=== PATIENT | male | born 1955 | race American Indian/Alaskan Native ===

== ENCOUNTER 2020-01-16 13:54 | Observation (INO) | payer SELFPAY ==
--- NOTE | 2020-01-16 14:19 | Cat Scan Report ---
CT head/brain wo con INDICATION / CLINICAL INFORMATION: 64 years Male; MAIN. TECHNIQUE: Routine CT head without contrast. All CT scans at this location are performed using CT dos e reduction for ALARA by means of automated exposure control. COMPARISON: None. FINDINGS: BRAIN / INTRACRANIAL CONTENTS: Multiple lacunar infarcts seen in the gangliocapsular and thalamic reg ions. Age of these findings are indeterminate without diffusion imaging by MRI. Otherwise, no acute hemorrhage, mass effect, midline shift, hydrocephalus, or acute, large territori al infarct. There are mild areas of decreased attenuation in the white matter of the cerebral hemispheres. These are nonspecific findings and may be related to microangiopathy (hypertension, diabetes, atheroscleros is), given the patient's age. It might be difficult to evaluate for small areas of ischemia without d iffusion imaging by MRI. CRANIOCERVICAL JUNCTION: No significant abnormality. ORBITS: No significant abnormality of visualized orbits. 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 Visualized paranasal sinuses are essentially clear. ADDITIONAL FINDINGS: No significant atherosclerotic disease appreciated. IMPRESSION: 1. No focal mass, hemorrhage, hydrocephalus, or acute, large territorial infarct. Signer Name: Taras Franklin MD, III Signed: 01/16/2020 2:14 PM Workstation Name: [facility]
--- NOTE | 2020-01-16 14:26 | Consultation ---
History of Present Illness Consult date: 01/16/20 History of present illness: [facility] Date of Service: 01/16/2020 13:57:54 Impression: G45.9 - Transient cerebral ischaemic attack, unspecified Comments/Sign-Out: likely small vessel event with right face weakness and dysarthria (resolved to baseline per patient). He reportedly has hx of TIA but is not on aspirin daily; it seems he does not get regular medical care. Known risk factors include age, prior CV dz. TPA is not indicated for NIH SS 1 for baseline chronic mild dysarthria; presentation not suggestive of LVO. Metrics: Last Known Well: 01/16/2020 09:00:00 [employer] Notification Time: 01/16/2020 13:57:32 Arrival Time: 01/16/2020 13:54:00 Stamp Time: 01/16/2020 13:57:54 Time First Login Attempt: 01/16/2020 14:03:00 Video Start Time: 01/16/2020 14:05:00 Symptoms: nausea, facial droop, dysarthria NIHSS Start Assessment Time: 01/16/2020 14:09:25 Patient is not a candidate for Alteplase/Activase. Patient was not deemed candidate for Alteplase/Activase thrombolytics because of Resolved symptoms (no residual disabling symptoms). Video End Time: 01/16/2020 14:20:22 CT head showed no acute hemorrhage or acute core infarct. Clinical Presentation is not Suggestive of Large Vessel Occlusive Disease ED Physician notified of diagnostic impression and management plan on 01/16/2020 14:21:45 Our recommendations are outlined below. Recommendations: Activate Stroke Protocol Admission/Order Set Stroke/Telemetry Floor Neuro Checks Bedside Swallow Eval DVT Prophylaxis IV Fluids, Normal Saline Head of Bed 30 Degrees Euglycemia and Avoid Hyperthermia (PRN Acetaminophen) Initiate Aspirin 81 MG Daily Routine Consultation with Inhouse Neurology for Follow up Care Sign Out: Discussed with Emergency Department Provider History of Present Illness: Patient is a 64 year old Male. Patient was brought by EMS for symptoms of nausea, facial droop, dysarthria presented to ED for sudden onset of nausea with distribution specialist note of slurred speech, generalized weakness, right facial droop prompting stroke alert. Patient initially report anything but nausea to me but acknowledges other sxs reported above by distribution specialist. He was last well/at baseline at 9:00 today. He denies vertigo, focal extremitiy weakness, aphasia, vision change, prior similar sxs. He denies confusion though he cannot report age/month. He is oriented to year, president. He states he is not on any medication. Per distribution specialist, son states he has baseline dysarthria but this is worse. He did not report any memory trouble. No family at bedside. Past Medical History: Stroke There is NO history of Hypertension There is NO history of Diabetes Mellitus There is NO history of Hyperlipidemia There is NO history of Atrial Fibrillation There is NO history of Coronary Artery Disease Anticoagulant use: No Antiplatelet use: No Examination: BP(150/70), Pulse(n/a), Blood Glucose(123) 1A: Level of Consciousness - Alert; keenly responsive + 0 1B: Ask Month and Age - Both Questions Right + 0 1C: Blink Eyes & Squeeze Hands - Performs Both Tasks + 0 2: Test Horizontal Extraocular Movements - Normal + 0 3: Test Visual Reyes - No Visual Loss + 0 4: Test Facial Palsy (Use Grimace if Obtunded) - Normal symmetry + 0 5A: Test Left Arm Motor Drift - No Drift for 10 Seconds + 0 5B: Test Right Arm Motor Drift - No Drift for 10 Seconds + 0 6A: Test Left Leg Motor Drift - No Drift for 5 Seconds + 0 6B: Test Right Leg Motor Drift - No Drift for 5 Seconds + 0 7: Test Limb Ataxia (FNF/Heel-Gutierrez) - No Ataxia + 0 8: Test Sensation - Normal; No sensory loss + 0 9: Test Language/Aphasia - Normal; No aphasia + 0 10: Test Dysarthria - Mild-Moderate Dysarthria: Slurring but can be understood + 1 (chronic baseline per patient and son report to distribution specialist) 11: Test Extinction/Inattention - No abnormality + 0 NIHSS Score: 1 Patient/Family was informed the Neurology Consult would happen via TeleHealth consult by way of interactive audio and video telecommunications and consented to receiving care in this manner. Due to the immediate potential for life-threatening deterioration due to underlying acute neurologic illness, I spent 15 minutes providing critical care. This time includes time for face to face visit via telemedicine, review of medical records, imaging studies and discussion of findings with providers, the patient and/or family. Dr Elsy Yeung [employer] Case [id number] Medications and Allergies Allergies Allergy/AdvReac Type Severity Reaction Status Date / Time No Known Allergies Allergy Unverified 01/16/20 14:16 Physical Examination - Vital Signs Vital Signs: Vital Signs Pulse Resp BP Pulse Ox 69 18 134/80 98 01/16/20 14:10 01/16/20 14:10 01/16/20 14:10 01/16/20 14:10
[2020-01-16] MEDS ORDERED: ASPIRIN 325 MG TAB PO ONE (14:38)
--- NOTE | 2020-01-16 14:53 | Emergency Department Report ---
ED Neuro Deficit HPI - General Chief Complaint: Neuro Symptoms/Deficit Stated Complaint: STROKE Time Seen by Provider: 01/16/20 13:58 Source: patient, EMS Mode of arrival: Stretcher Limitations: Altered Mental Status - History of Present Illness Initial Comments: 64-year-old male, history of TIA in the past, presents to ED with new onset neuro deficits. EMS reports that patient was working on a car at approximately 1:25 PM when he started to have slurred speech and facial droop. Son reported that patient has a baseline slurring of his speech secondary to a " TIA" in the past. Patient denies having any numbness or weakness in his extremities. EMS reports symptoms were resolved at approximately 1:54 PM. Patient denies taking any medications at this time. He states he does not have a regular doctor currently. -: This afternoon Location: speech, right face Presenting Symptoms: Present: Unable to Speak Clearly History of same: Yes Place: home Severity: mild Quality: improving Improves With: none Worsens With: none On Anticoagulants: No Associated Symptoms: denies other symptoms. denies: chest pain, fever/chills, headaches, shortness of breath Treatments Prior to Arrival: none - Related Data Home Medications: Previous Rx's Medication Instructions Recorded Last Taken Type Aspirin 325 mg PO QDAY #30 tablet 01/17/20 Unknown Rx AtorvaSTATin [Lipitor] 40 mg PO QHS #30 tablet 01/17/20 Unknown Rx amLODIPine 5 mg PO DAILY #30 tab 01/17/20 Unknown Rx Allergies/Adverse Reactions: Allergies Allergy/AdvReac Type Severity Reaction Status Date / Time No Known Allergies Allergy Unverified 01/16/20 14:16 ED Review of Systems ROS: Stated complaint: STROKE Other details as noted in HPI Comment: All other systems reviewed and negative Constitutional: denies: fever Respiratory: denies: shortness of breath Cardiovascular: denies: chest pain Gastrointestinal: nausea. denies: abdominal pain, vomiting Neurological: other (Denies dizziness). denies: headache ED Past Medical Hx - Past Medical History Previous Medical History?: Yes Hx Hypertension: Yes Additional medical history: TIA - Social History Smoking Status: Unknown if ever smoked - Medications Home Medications: Home Medications Medication Instructions Recorded Confirmed Last Taken Type Aspirin 325 mg PO QDAY #30 tablet 01/17/20 Unknown Rx AtorvaSTATin [Lipitor] 40 mg PO QHS #30 tablet 01/17/20 Unknown Rx amLODIPine 5 mg PO DAILY #30 tab 01/17/20 Unknown Rx ED Neuro Physical Exam - General Limitations: Altered Mental Status General appearance: alert, in no apparent distress Suspected Stroke: Yes - Head Head exam: Present: atraumatic, normocephalic - Eye Eye exam: Present: normal appearance, PERRL, EOMI - ENT ENT exam: Present: mucous membranes moist - Neck Neck exam: Present: normal inspection - Respiratory Respiratory exam: Present: normal lung sounds bilaterally. Absent: respiratory distress - Cardiovascular Cardiovascular Exam: Present: regular rate, normal rhythm - GI/Abdominal GI/Abdominal exam: Present: soft. Absent: distended, tenderness - Extremities Exam Extremities exam: Present: normal inspection - Neurological Exam Neurological exam: Present: alert, oriented X3 - NIHSS Assessment Interval: Baseline 1a. Level of Consciousness: alert/keenly responsive 1b. LOC Questions: answers both correctly 1c. LOC Commands: performs tasks correctly 2. Best Gaze: normal 3. Visual: no visual loss 4. Facial Palsy: normal symmetrical movement 5b. Motor Arm Right: no drift 5a. Motor Arm Left: no drift 6a. Motor Leg Left: no drift 6b. Motor Leg Right: no drift 7. Limb Ataxia: absent 8. Sensory: normal 9. Best Language: no aphasia 10. Dysarthria: mild/moderate dysarthria 11. Extinction/Inattention: no abnormality Total Score: 1 Stroke Severity: Minor Stroke - Psychiatric Psychiatric exam: Present: normal affect, normal mood - Skin Skin exam: Present: warm, dry, intact, normal color ED Course Vital Signs 01/16/20 01/16/20 01/16/20 14:10 14:16 14:20 Temperature 97.8 F Pulse Rate 69 Respiratory 18 18 15 Rate Blood Pressure 134/80 O2 Sat by Pulse 98 98 Oximetry 01/16/20 01/16/20 01/16/20 14:30 14:45 15:00 Temperature Pulse Rate 69 74 70 Respiratory 16 16 16 Rate Blood Pressure 137/71 143/77 159/98 O2 Sat by Pulse 97 95 97 Oximetry 01/16/20 01/16/20 01/16/20 15:15 15:30 15:45 Temperature Pulse Rate 69 69 72 Respiratory 12 18 17 Rate Blood Pressure 147/86 148/84 150/86 O2 Sat by Pulse 95 95 94 Oximetry 12/10/20 16:00 Temperature Pulse Rate 70 Respiratory 19 Rate Blood Pressure 154/89 O2 Sat by Pulse 95 Oximetry - Lab Data Result diagrams: 01/16/20 14:34 01/16/20 14:34 Lab Results 01/16/20 01/16/20 01/16/20 Range/Units 14:34 14:34 14:34 WBC 6.4 (4.5-11.0) K/mm3 RBC 5.19 H (3.65-5.03) M/mm3 Hgb 14.2 (11.8-15.2) gm/dl Hct 43.8 (35.5-45.6) % MCV 85 (84-94) fl MCH 28 (28-32) pg MCHC 33 (32-34) % RDW 14.6 (13.2-15.2) % Plt Count 257 (140-440) K/mm3 Lymph % (Auto) 19.0 (13.4-35.0) % Morris % (Auto) 11.1 H (0.0-7.3) % Eos % (Auto) 0.8 (0.0-4.3) % Baso % (Auto) 0.4 (0.0-1.8) % Lymph # (Auto) 1.2 (1.2-5.4) K/mm3 Morris # (Auto) 0.7 (0.0-0.8) K/mm3 Eos # (Auto) 0.1 (0.0-0.4) K/mm3 Baso # (Auto) 0.0 (0.0-0.1) K/mm3 Seg Neutrophils % 68.7 (40.0-70.0) % Seg Neutrophils # 4.4 (1.8-7.7) K/mm3 PT 13.7 (12.2-14.9) Sec. INR 1.07 (0.87-1.13) APTT 25.4 (24.2-36.6) Sec. Thrombin Time 16.0 (15.1-19.6) Sec. Sodium 140 (137-145) mmol/L Potassium 4.0 (3.6-5.0) mmol/L Chloride 105.3 (98-107) mmol/L Carbon Dioxide 23 (22-30) mmol/L Anion Gap 16 mmol/L BUN 17 (9-20) mg/dL Creatinine 1.4 H (0.8-1.3) mg/dL Estimated GFR > 60 ml/min BUN/Creatinine Ratio 12 % Glucose 104 H (75-100) mg/dL Calcium 9.6 (8.4-10.2) mg/dL Total Creatine Kinase 256 H (55-170) units/L CK-MB (CK-2) 3.1 (0.0-4.0) ng/mL CK-MB (CK-2) Rel Index 1.2 (0-4) Troponin T < 0.010 (0.00-0.029) ng/mL - EKG Data -: EKG Interpreted by Me EKG shows normal: sinus rhythm, axis, intervals, QRS complexes Rate: normal Interpretation: no acute changes, LVH - Radiology Data Radiology results: report reviewed, image reviewed - Medical Decision Making 64-year-old male, history of TIA/CVA in the past with baseline slurred speech presents to the ED with what appears to be another TIA. Patient experienced wor sening of his slurred speech and facial droop for approximately 30 minutes. Symptoms resolved prior to ED arrival. CT head is negative for any acute findings. Patient has been seen and evaluated by neurologist. Stroke work-up is recommended. Patient will be admitted to hospitalist, Dr. Owen, for further management. - Differential Diagnosis Ischemic CVA, hemorrhagic CVA, TIA, seizure Critical care attestation.: If time is entered above; I have spent that time in minutes in the direct care of this critically ill patient, excluding procedure time. ED Disposition Clinical Impression: TIA (transient ischemic attack) Disposition: -09 OP ADMIT IP TO THIS HOSP Is pt being admited?: Yes Condition: Stable Time of Disposition: 14:57
[2020-01-16 14:57] LABS: Basophils % (Auto) 0.4 % (0.0-1.8); Eosinophils # (Auto) 0.1 K/mm3 (0.0-0.4); Eosinophils % (Auto) 0.8 % (0.0-4.3); Hematocrit 43.8 % (35.5-45.6); Hemoglobin 14.2 gm/dl (11.8-15.2); Lymphocytes # (Auto) 1.2 K/mm3 (1.2-5.4); Mean Corpuscular HGB Conc 33 % (32-34); Mean Corpuscular Volume 85 fl (84-94); Monocytes # (Auto) 0.7 K/mm3 (0.0-0.8); Monocytes % (Auto) 11.1 % (0.0-7.3); Platelet Count 257 K/mm3 (140-440); Red Blood Count 5.19 M/mm3 (3.65-5.03); Red Cell Distribution Width 14.6 % (13.2-15.2)
--- NOTE | 2020-01-16 15:09 | History and Physical Report ---
History of Present Illness Chief complaint: I feel weak, and my speech isnt right History of present illness: 64 YO Male with HTN, CVA presents to ED for evaluation. Pt states that he was in his usual state of health and was outside at his home making repairs to his vehicle when he experienced a sudden onset of slurred speech, right facial drooping, drooling. Patient reports that symptoms began at 1325 hrs. EMS was notified and upon arrival the patient was found to be in distress and was transported to [facility] for further care and evaluation of the aforementioned symptoms. Patient seen and evaluated in the emergency department. All lab and imaging studies reviewed. Patient found to have clinical symptoms consistent with CVA at the time of my evaluation. Teleneurology was consulted. Patient was deemed not to be a candidate for TPA. Patient placed in observation status and admitted to medical floor and initiated on CVA protocol. Patient denies fever, chills, chest pain, palpitation, productive cough, skin rash, recent ill contacts, or known exposure to COVID-19. No prior admission for review. No m edication listed at time of admission for reconciliation. Past History Past Medical History: stroke Past Surgical History: No surgical history, Other (Reviewed) Social history: . denies: smoking, alcohol abuse, prescription drug abuse Family history: hypertension Medications and Allergies Allergies Allergy/AdvReac Type Severity Reaction Status Date / Time No Known Allergies Allergy Unverified 01/16/20 14:16 Home Medications Medication Instructions Recorded Confirmed Last Taken Type No Known Home Medications [No 01/16/20 01/16/20 Unknown History Reported Home Medications] Review of Systems Constitutional: no weight loss, no weight gain, no fever, no sweats Ears, nose, mouth and throat: no ear pain, no ear discharge, no tinnitis, no nasal congestion, no sinus pressure Cardiovascular: no chest pain, no orthopnea, no rapid/irregular heart beat, no syncope, no lightheadedness, no shortness of breath Respiratory: no cough, no excessive sputum, no shortness of breath Gastrointestinal: no nausea, no vomiting, no diarrhea Genitourinary Male: no hematuria, no flank pain, no urinary hesitancy, no incontinence Rectal: no pain, no bleeding Musculoskeletal: no neck stiffness Integumentary: no rash, no pruritis, no wounds, no boils Neurological: weakness, change in speech, motor disturbance, other (Drooling, facial droop), no head injury, no paralysis, no numbness, no seizures, no tremors Psychiatric: no anxiety, no memory loss, no sleep disturbances, no insomnia, no change in appetite, no suicidal ideation Endocrine: no cold intolerance, no excessive thirst, no polydipsia, no excessive sweating Hematologic/Lymphatic: no easy bruising, no easy bleeding, no lymphedema Allergic/Immunologic: no urticaria, no wheezing, no anaphylaxis Exam - Constitutional Vitals: Temp Pulse Resp BP Pulse Ox 97.8 F 69 16 137/71 97 01/16/20 14:20 01/16/20 14:30 01/16/20 14:30 01/16/20 14:30 01/16/20 14:30 General appearance: Present: mild distress - EENT Eyes: Present: PERRL ENT: hearing intact, clear oral mucosa - Neck Neck: Present: supple, normal ROM - Respiratory Respiratory effort: normal Respiratory: bilateral: CTA - Cardiovascular Heart Sounds: Present: S1 & S2. Absent: rub, click - Extremities Extremities: pulses symmetrical, No edema Peripheral Pulses: within normal limits - Abdominal General gastrointestinal: Present: soft, non-tender, non-distended, normal bowel sounds Male genitourinary: Present: normal - Integumentary Integumentary: Present: clear, warm, dry - Musculoskeletal Musculoskeletal: gait normal, strength equal bilaterally - Psychiatric Psychiatric: appropriate mood/affect, intact judgment & insight - Neurologic Neurologic: CNII-XII intact, focal deficits (Finally get you out of the jeep), moves all extremities Results - Labs CBC & Chem 7: 01/16/20 14:34 01/16/20 14:34 Labs: Abnormal lab results 01/16/20 Range/Units 14:34 RBC 5.19 H (3.65-5.03) M/mm3 [place] % (Auto) 11.1 H (0.0-7.3) % Assessment and Plan - Patient Problems (1) CVA (cerebral vascular accident) Current Visit: Yes Status: Acute Plan to address problem: CT head, Neuro check, Physical therapy consulted, Occupational therapy, Speech therapy consulted, seizure precautions, anitplatelet therapy, lipid panel, statin therapy. (2) Dysarthria Current Visit: Yes Status: Acute Plan to address problem: Speech therapy consulted, (3) DVT prophylaxis Current Visit: Yes Status: Acute Plan to address problem: SCD to BLE while in bed,
[2020-01-16] MEDS ORDERED: PROMETHAZINE 25 MG RECT SUPP PR PRN (15:10)
[2020-01-16] MEDS ORDERED: ONDANSETRON 4 MG/2 ML INJ IV PRN (15:10)
[2020-01-16] MEDS ORDERED: METOCLOPRAMIDE 10 MG TAB PO PRN (15:10)
[2020-01-16] MEDS ORDERED: ACETAMINOPHEN 325 MG TAB PO PRN (15:10)
[2020-01-16] MEDS ORDERED: MAGNESIUM HYDROXIDE (MOM) ORAL LIQD UDC PO PRN (15:10)
[2020-01-16 15:11] LABS: INR 1.07 (0.87-1.13)
[2020-01-16 15:12] LABS: Partial Thromboplastin Time 25.4 Sec. (24.2-36.6)
[2020-01-16 15:14] LABS: Creatine Kinase MB 3.1 ng/mL (0.0-4.0)
[2020-01-16 15:15] LABS: BUN/Creatinine Ratio 12; Blood Urea Nitrogen 17 mg/dL (9-20); Calcium 9.6 mg/dL (8.4-10.2); Hemolysis Index 16
[2020-01-17] MEDS ORDERED: ASPIRIN 325 MG TAB PO SCH (10:00)
--- NOTE | 2020-01-17 12:00 | Discharge Summary ---
Providers - Providers Date of Admission: 01/16/20 15:10 Attending physician: CRISTHIAN MARIE 01/16/20 15:10 Occupational Therapy Evaluate and Treat [CONS] Routine Comment: Reason For Exam: Neuro deficits Physical Therapy Evaluation and Treat [CONS] Routine Comment: Reason For Exam: Neuro deficits 01/16/20 15:11 Speech Therapy Evaluation and Treat [CONS] Routine Reason For Exam: swallow eval Primary care physician: [employer] Hospitalization Condition: Stable - Discharge Diagnoses (1) CVA (cerebral vascular accident) Status: Acute (2) Dysarthria Status: Acute (3) DVT prophylaxis Status: Acute Exam - Constitutional Vitals: Temp Pulse Resp BP Pulse Ox 98.5 F 62 18 162/71 98 01/17/20 08:45 01/17/20 10:40 01/17/20 10:40 01/17/20 10:40 01/17/20 10:40 Plan Follow up with: PRIMARY CARE, [Primary Care Provider] - 7 Days Prescriptions: Aspirin 325 mg PO QDAY #30 tablet AtorvaSTATin [Lipitor] 40 mg PO QHS #30 tablet
[2020-01-17 12:39] VITALS: BP 146/79
== END 2020-01-17 16:38 | disposition home or self-care (01) ==
LOC: ED 13:54 → 4A 15:10
PROVIDERS: ADMIT Internal Medicine; ATTEND Internal Medicine
DX: I63.9 Cerebral infarction, unspecified (principal); G45.9 Transient cerebral ischemic attack, unspecified; I10 Essential (primary) hypertension; R47.1 Dysarthria and anarthria; F17.210 Nicotine dependence, cigarettes, uncomplicated; R29.701 NIHSS score 1; Z79.82 Long term (current) use of aspirin; Z79.899 Other long term (current) drug therapy
CPT/HCPCS: 36415; 70450; 80048; 82550; 82553; 84484; 85025; 85610; 85670; 85730; 92523; 92610; 93005; 93306; 97165; 99285; 99406; A9270; G0378

== ENCOUNTER 2021-06-02 08:32 | Inpatient (IN) | payer SELFPAY ==
[2021-06-02] MEDS ORDERED: ATROPINE 0.1% (1 MG/10 ML) CARDIAC SYRINGE IV ONE (10:27)
[2021-06-02] MEDS ORDERED: ONDANSETRON 4 MG/2 ML INJ IV ONE (10:38)
[2021-06-02] MEDS ORDERED: fentaNYL 100 MCG/2 ML INJ IV ONE (10:38)
--- NOTE | 2021-06-02 10:43 | Emergency Department Report ---
HPI - General Chief Complaint: Arrhythmia/Palpitations Time Seen by Provider: 06/02/21 10:26 - [facility] HPI: Room 25 Patient is a 66-year-old male present with a chief complaint of bilateral foot pain. Patient states he has had bilateral foot pain x4 months. Patient states he went to [facility] but was not given a diagnosis. Patient denies any preceding trauma. Patient states he continues to have pain whenever he bears weight. Patient denies history of fever, chest pain, shortness of breath or dizziness. Patient was found to be bradycardic in triage with a heart rate of 39 bpm. The patient states he has not currently taking any medications. Patient denies having a past medical history including hypertension ED Past Medical Hx - Past Medical History Hx Hypertension: Yes Additional medical history: TIA - Surgical History Past Surgical History?: No - Family History Family history: no significant - Social History Smoking Status: Former Smoker (None x2-years) Substance Use Type: None (Denies illicit drug use) - Medications Home Medications: Home Medications Medication Instructions Recorded Confirmed Last Taken Type Aspirin 325 mg PO QDAY #30 tablet 01/17/20 Unknown Rx AtorvaSTATin [Lipitor] 40 mg PO QHS #30 tablet 01/17/20 Unknown Rx amLODIPine 5 mg PO DAILY #30 tab 01/17/20 Unknown Rx ED Review of Systems ROS: Stated complaint: FEET SWOLLEN Other details as noted in HPI Constitutional: no symptoms reported. denies: fever Eyes: denies: eye pain ENT: denies: throat pain Respiratory: denies: shortness of breath Cardiovascular: denies: chest pain, palpitations Endocrine: no symptoms reported Gastrointestinal: denies: abdominal pain Genitourinary: denies: dysuria Musculoskeletal: arthralgia, myalgia Neurological: denies: headache Physical Exam - Physical Exam Vital Signs: Vital Signs 06/02/21 09:44 Temperature 98.2 F Pulse Rate 42 L Respiratory 16 Rate Blood Pressure 133/82 [Left] O2 Sat by Pulse 98 Oximetry Physical Exam: GENERAL: The patient is well-developed well-nourished male lying on stretcher not appearing to be in acute distress. [] HEENT: Normocephalic. Atraumatic. Extraocular motions are intact. Patient has moist mucous membranes. NECK: Supple. Trachea midline CHEST/LUNGS: Clear to auscultation. There is no respiratory distress noted. HEART/CARDIOVASCULAR: Regular. There is bradycardia. There is no gallop rub or murmur. 1+ DPs bilaterally ABDOMEN: Abdomen is soft, nontender. Patient has normal bowel sounds. There is no abdominal distention. SKIN: There is no rash. There is no edema. The left fourth toe is black. No drainage appreciated. Unable to appreciate surrounding erythema NEURO: The patient is awake, alert, and oriented. The patient is cooperative. The patient has no focal neurologic deficits. The patient has normal speech. GCS 15 MUSCULOSKELETAL: There is no evidence of acute injury. ED Course Vital Signs 06/02/21 09:44 Temperature 98.2 F Pulse Rate 42 L Respiratory 16 Rate Blood Pressure 133/82 [Left] O2 Sat by Pulse 98 Oximetry ED Medical Decision Making - Lab Data Result diagrams: 06/02/21 11:08 06/02/21 11:08 Laboratory Tests 06/02/21 06/02/21 06/02/21 11:08 11:08 11:08 WBC 4.1 L RBC 4.87 Hgb 13.1 Hct 41.1 MCV 85 MCH 27 L MCHC 32 RDW 15.2 Plt Count 217 Lymph % (Auto) 28.9 [place] % (Auto) 8.4 H Eos % (Auto) 0.8 Baso % (Auto) 1.0 Lymph # (Auto) 1.2 [place] # (Auto) 0.3 Eos # (Auto) 0.0 Baso # (Auto) 0.0 Add Manual Diff Complete Seg Neutrophils % 60.9 Seg Neutrophils # 2.5 PT 14.5 INR 1.02 APTT 29.2 Sodium 137 Potassium 4.3 Chloride 97.9 L Carbon Dioxide 25 Anion Gap 18 BUN 18 Creatinine 1.1 Estimated GFR > 60 BUN/Creatinine Ratio 16 Glucose 77 Calcium 9.9 Magnesium 2.00 Total Creatine Kinase 84 CK-MB (CK-2) 2.4 CK-MB (CK-2) Rel Index 2.8 Troponin T 0.012 C-Reactive Protein < 0.30 TSH Free T4 06/02/21 11:08 WBC RBC Hgb Hct MCV MCH MCHC RDW Plt Count Lymph % (Auto) [place] % (Auto) Eos % (Auto) Baso % (Auto) Lymph # (Auto) [place] # (Auto) Eos # (Auto) Baso # (Auto) Add Manual Diff Seg Neutrophils % Seg Neutrophils # PT INR APTT Sodium Potassium Chloride Carbon Dioxide Anion Gap BUN Creatinine Estimated GFR BUN/Creatinine Ratio Glucose Calcium Magnesium Total Creatine Kinase CK-MB (CK-2) CK-MB (CK-2) Rel Index Troponin T C-Reactive Protein TSH 0.804 Free T4 1.06 Laboratory Tests 06/02/21 06/02/21 06/02/21 11:08 11:08 11:08 WBC 4.1 L RBC 4.87 Hgb 13.1 Hct 41.1 MCV 85 MCH 27 L MCHC 32 RDW 15.2 Plt Count 217 Lymph % (Auto) 28.9 [place] % (Auto) 8.4 H Eos % (Auto) 0.8 Baso % (Auto) 1.0 Lymph # (Auto) 1.2 [place] # (Auto) 0.3 Eos # (Auto) 0.0 Baso # (Auto) 0.0 Add Manual Diff Complete Seg Neutrophils % 60.9 Seg Neutrophils # 2.5 ESR 6 PT 14.5 INR 1.02 APTT 29.2 Sodium 137 Potassium 4.3 Chloride 97.9 L Carbon Dioxide 25 Anion Gap 18 BUN 18 Creatinine 1.1 Estimated GFR > 60 BUN/Creatinine Ratio 16 Glucose 77 Calcium 9.9 Magnesium 2.00 Total Creatine Kinase 84 CK-MB (CK-2) 2.4 CK-MB (CK-2) Rel Index 2.8 Troponin T 0.012 C-Reactive Protein < 0.30 TSH Free T4 Digoxin 06/02/21 06/02/21 11:08 11:08 WBC RBC Hgb Hct MCV MCH MCHC RDW Plt Count Lymph % (Auto) [place] % (Auto) Eos % (Auto) Baso % (Auto) Lymph # (Auto) [place] # (Auto) Eos # (Auto) Baso # (Auto) Add Manual Diff Seg Neutrophils % Seg Neutrophils # ESR PT INR APTT Sodium Potassium Chloride Carbon Dioxide Anion Gap BUN Creatinine Estimated GFR BUN/Creatinine Ratio Glucose Calcium Magnesium Total Creatine Kinase CK-MB (CK-2) CK-MB (CK-2) Rel Index Troponin T C-Reactive Protein TSH 0.804 Free T4 1.06 Digoxin 0.3 L - EKG Data -: EKG Interpreted by Ca EKG shows normal: sinus rhythm Rate: bradycardia (39 bpm) - EKG Data When compared to previous EKG there are: previous EKG unavailable Interpretation: nonspecific ST-T wave anselmo - Radiology Data Radiology results: report reviewed (Chest x-ray, bilateral foot x-ray), image reviewed (Chest x-ray, bilateral foot x-ray) interpreted by me: Chest x-ray-no definite focal infiltrates, no pneumothorax Bilateral foot x-ray-no acute fractures, no foreign body seen [address] [address] XRay Report Signed Patient: ELAYNE GARNER I MR#: [id number] 5 : 1955 Acct:[id number] Age/Sex: 66 / M ADM Date: 06/02/21 Loc: ED Attending Dr: Ordering Physician: JOSE MIGUEL PABLO MD Date of Service: 06/02/21 Procedure(s): XR chest 1V ap Accession Number(s): [id number] cc: JOSE MIGUEL PABLO MD Fluoro Time In Minutes: CHEST 1 VIEW INDICATION: Bradycardia. COMPARISON: None FINDINGS: Support devices: None. Heart: Within normal limits. Lungs/Pleura: No acute air space or interstitial disease. No pleural abnormality or pneumothorax. Additional findings: None. IMPRESSION: No acute findings. Signer Name: Garret Rodas Jr, MD Signed: 06/02/2021 11:08 AM Workstation Name: [id number] Transcribed By: TTR Dictated By: GARRET RODAS JR, MD Electronically Authenticated By: GARRET RODAS JR, MD Signed Date/Time: 06/02/21 110 DD/ 1108 TD/TT: [address] [address] XRay Report Signed Patient: ELAYNE GARNER I MR#: [id number] 5 : 1955 Acct:[id number] Age/Sex: 66 / M ADM Date: 06/02/21 Loc: ED Attending Dr: Ordering Physician: JOSE MIGUEL PABLO MD Date of Service: 06/02/21 Procedure(s): XR foot BILAT 3+V Accession Number(s): [id number] cc: JOSE MIGUEL PABLO MD Fluoro Time In Minutes: Bilateral feet-3 views each INDICATION: Bilateral foot pain. COMPARISON: None available. IMPRESSION: Old bimalleolar surgical fixation in the right ankle with no complication. Normal alignment. Very mild degenerative changes throughout both feet. No acute osseous abnormality. Normal alignment. Soft tissues are unremarkable. Signer Name: Jose Raul Bertrand MD Signed: 06/02/2021 11:53 AM Workstation Name: [id number] Transcribed By: CLARK Dictated By: Jose Raul Bertrand MD Electronically Authenticated By: Jose Raul Bertrand MD Signed Date/Time: 06/02/21 1153 DD/ 1151 TD/TT: - Differential Diagnosis Bradycardia, PVD, gangrene Critical care attestation.: If time is entered above; I have spent that time in minutes in the direct care of this critically ill patient, excluding procedure time. ED Disposition Clinical Impression: Bradycardia, Toe infection Disposition: ADMITTED INPATIENT Is pt being admited?: Yes Does the pt Need Aspirin: Yes Condition: Fair Referrals: PRIMARY CARE, [Primary Care Provider] - 3-5 Days Time of Disposition: 12:40 (Care transferred to hospitalist (Dr. Acosta))
--- NOTE | 2021-06-02 11:15 | XRay Report ---
CHEST 1 VIEW INDICATION: Bradycardia. COMPARISON: None FINDINGS: Support devices: None. Heart: Within normal limits. Lungs/Pleura: No acute air space or interstitial disease. No pleural abnormality or pneumothorax. Additional findings: None. IMPRESSION: No acute findings. Signer Name: Garret Rodas Jr, MD Signed: 06/02/2021 11:08 AM Workstation Name: [id number]
--- NOTE | 2021-06-02 11:58 | XRay Report ---
Bilateral feet-3 views each INDICATION: Bilateral foot pain. COMPARISON: None available. IMPRESSION: Old bimalleolar surgical fixation in the right ankle with no complication. Normal alignm ent. Very mild degenerative changes throughout both feet. No acute osseous abnormality. Normal align ment. Soft tissues are unremarkable. Signer Name: Jose Raul Bertrand MD Signed: 06/02/2021 11:53 AM Workstation Name: [id number]
[2021-06-02 12:05] LABS: Creatine Kinase MB 2.4 ng/mL (0.0-4.0)
[2021-06-02 12:06] LABS: BUN/Creatinine Ratio 16; Blood Urea Nitrogen 18 mg/dL (9-20); Calcium 9.9 mg/dL (8.4-10.2); Hemolysis Index 23
[2021-06-02 12:18] LABS: Free T4 (Free Thyroxine) 1.06 ng/dL (0.76-1.46)
[2021-06-02 12:21] LABS: INR 1.02 (0.87-1.13)
[2021-06-02 12:22] LABS: Partial Thromboplastin Time 29.2 Sec. (24.2-36.6)
[2021-06-02 12:24] LABS: C-Reactive Protein < 0.30 mg/dL (0.00-1.30)
[2021-06-02 12:30] LABS: Eosinophils % (Auto) 0.8 % (0.0-4.3); Hematocrit 41.1 % (35.5-45.6); Hemoglobin 13.1 gm/dl (11.8-15.2); Lymphocytes # (Auto) 1.2 K/mm3 (1.2-5.4); Lymphocytes % (Auto) 28.9 % (13.4-35.0); Mean Corpuscular HGB Conc 32 % (32-34); Mean Corpuscular Volume 85 fl (84-94); Monocytes # (Auto) 0.3 K/mm3 (0.0-0.8); Monocytes % (Auto) 8.4 % (0.0-7.3); Platelet Count 217 K/mm3 (140-440); Red Blood Count 4.87 M/mm3 (3.65-5.03); Red Cell Distribution Width 15.2 % (13.2-15.2)
[2021-06-02] MEDS ORDERED: cloNIDine 0.2 MG TAB PO ONE (12:35)
[2021-06-02] MEDS ORDERED: ASPIRIN 325 MG TAB PO ONE (12:40)
[2021-06-02] MEDS ORDERED: VANCOMYCIN/NS 1 GM/250 ML 1 GM/250 ML BAG IV ONE (12:40)
[2021-06-02 12:56] LABS: Erythrocyte Sedimentation Rate 6 mm/Hr (0-20)
--- NOTE | 2021-06-02 18:13 | Electrocardiograph Report ---
[facility] Test Date: 2021-06-02 Test Time: 10:06:07 Pat Name: ELAYNE GARNER Department: Room: Gender: M Can Carrier: DAHIANA : 1955 Requested By: ED DOC Order Number: [id number] Reading MD: Cailin Stephens Measurements Intervals [place] Rate: 39 P: 76 AR: 144 QRS: 69 QRSD: 92 T: 72 QT: 515 QTc: 417 Interpretive Statements Marked sinus bradycardia LVH with secondary repolarization abnormality No previous ECG available for comparison Electronically Signed On 06-02-2021 18:13:09 EDT by Cailin Stephens
[2021-06-02] MEDS ORDERED: ACETAMINOPHEN 325 MG TAB PO PRN (19:29)
[2021-06-02] MEDS ORDERED: MORPHINE 2 MG/1 ML INJ IV PRN (19:29)
[2021-06-02] MEDS ORDERED: ONDANSETRON 4 MG/2 ML INJ IV PRN (19:29)
--- NOTE | 2021-06-02 19:41 | History and Physical Report ---
History of Present Illness Date of examination: 06/02/21 Date of admission: June 02, 2021 Chief complaint: Bilateral foot pain for 4 months History of present illness: Patient comes in for bilateral foot pain. In triage patient was found to be bradycardic and EKG was done EKG was showing a heart rate of 40/min. No symptoms of lightheadedness or syncope etc. Patient being admitted for management of bilateral lower extremity pain and severe bradycardia. No chest pain. Patient does not know that he has bradycardia patient denies history of hypertension and TIA in the past. - Past Medical History --Hypertension: Yes --Additional medical history: TIA - Surgical History Past Surgical History?: No - Family History Family history: no significant - Social History Smoking Status: Former Smoker (None x2-years) Substance Use Type: None (Denies illicit drug use) - Medications Home Medications: Home Medications Medication Instructions Recorded Confirmed Last Taken Type Aspirin 325 mg PO QDAY #30 tablet 01/17/20 Unknown Rx AtorvaSTATin [Lipitor] 40 mg PO QHS #30 tablet 01/17/20 Unknown Rx amLODIPine 5 mg PO DAILY #30 tab 01/17/20 Unknown Rx Review of Systems ROS: Stated complaint: FEET SWOLLEN Other details as noted in HPI Constitutional: no symptoms reported. denies: fever Eyes: denies: eye pain ENT: denies: throat pain Respiratory: denies: shortness of breath Cardiovascular: denies: chest pain, palpitations Endocrine: no symptoms reported Gastrointestinal: denies: abdominal pain Genitourinary: denies: dysuria Musculoskeletal: arthralgia, myalgia Neurological: denies: headache Medications and Allergies Allergies Allergy/AdvReac Type Severity Reaction Status Date / Time No Known Allergies Allergy Unverified 01/16/20 14:16 Home Medications Medication Instructions Recorded Confirmed Last Taken Type No Known Home Medications [No 06/03/21 06/03/21 Unknown History Reported Home Medications] Exam - Constitutional Vitals: Temp Pulse Resp BP Pulse Ox 98.2 F 51 L 16 119/70 100 06/02/21 09:44 06/02/21 17:50 06/02/21 17:50 06/02/21 17:50 06/02/21 17:50 General appearance: Present: no acute distress, well-nourished - EENT Eyes: Present: PERRL ENT: hearing intact, clear oral mucosa - Neck Neck: Present: supple, normal ROM - Respiratory Respiratory effort: normal Respiratory: bilateral: CTA - Cardiovascular Heart rate: 40 Rhythm: regular Heart Sounds: Present: S1 & S2. Absent: rub, click - Extremities Extremities: no ischemia, pulses intact, pulses symmetrical, No edema Peripheral Pulses: within normal limits - Abdominal General gastrointestinal: Present: soft, non-tender, non-distended, normal bowel sounds Male genitourinary: Present: normal - Integumentary Integumentary: Present: clear, warm, dry - Musculoskeletal Musculoskeletal: gait normal, strength equal bilaterally - Psychiatric Psychiatric: appropriate mood/affect, intact judgment & insight - Neurologic Neurologic: CNII-XII intact, moves all extremities - Allied Health Allied health notes reviewed: nursing, case management HEART Score - HEART Score Age: 45-65 Risk factors: 1-2 risk factors Troponin: Troponin T 0.012 ng/mL (0.00-0.029) 06/02/21 11:08 Troponin: < normal limit - Critical Actions Critical Actions: 0-3 pts:0.9-1.7%risk of adverse cardiac event.Candidate for discharge Results - Labs CBC & Chem 7: 06/02/21 11:08 06/02/21 11:08 Labs: Laboratory Last Values WBC 4.1 K/mm3 (4.5-11.0) L 06/02/21 11:08 RBC 4.87 M/mm3 (3.65-5.03) 06/02/21 11:08 Hgb 13.1 gm/dl (11.8-15.2) 06/02/21 11:08 Hct 41.1 % (35.5-45.6) 06/02/21 11:08 MCV 85 fl (84-94) 06/02/21 11:08 MCH 27 pg (28-32) L 06/02/21 11:08 MCHC 32 % (32-34) 06/02/21 11:08 RDW 15.2 % (13.2-15.2) 06/02/21 11:08 Plt Count 217 K/mm3 (140-440) 06/02/21 11:08 Lymph % (Auto) 28.9 % (13.4-35.0) 06/02/21 11:08 [place] % (Auto) 8.4 % (0.0-7.3) H 06/02/21 11:08 Eos % (Auto) 0.8 % (0.0-4.3) 06/02/21 11:08 Baso % (Auto) 1.0 % (0.0-1.8) 06/02/21 11:08 Lymph # (Auto) 1.2 K/mm3 (1.2-5.4) 06/02/21 11:08 [place] # (Auto) 0.3 K/mm3 (0.0-0.8) 06/02/21 11:08 Eos # (Auto) 0.0 K/mm3 (0.0-0.4) 06/02/21 11:08 Baso # (Auto) 0.0 K/mm3 (0.0-0.1) 06/02/21 11:08 Add Manual Diff Complete 06/02/21 11:08 Seg Neutrophils % 60.9 % (40.0-70.0) 06/02/21 11:08 Seg Neutrophils # 2.5 K/mm3 (1.8-7.7) 06/02/21 11:08 ESR 6 mm/Hr (0-20) 06/02/21 11:08 PT 14.5 Sec. (12.2-14.9) 06/02/21 11:08 INR 1.02 (0.87-1.13) 06/02/21 11:08 APTT 29.2 Sec. (24.2-36.6) 06/02/21 11:08 Sodium 137 mmol/L (137-145) 06/02/21 11:08 Potassium 4.3 mmol/L (3.6-5.0) 06/02/21 11:08 Chloride 97.9 mmol/L (98-107) L 06/02/21 11:08 Carbon Dioxide 25 mmol/L (22-30) 06/02/21 11:08 Anion Gap 18 mmol/L 06/02/21 11:08 BUN 18 mg/dL (9-20) 06/02/21 11:08 Creatinine 1.1 mg/dL (0.8-1.3) 06/02/21 11:08 Estimated GFR > 60 ml/min 06/02/21 11:08 BUN/Creatinine Ratio 16 % 06/02/21 11:08 Glucose 77 mg/dL (75-100) 06/02/21 11:08 Calcium 9.9 mg/dL (8.4-10.2) 06/02/21 11:08 Magnesium 2.00 mg/dL (1.7-2.3) 06/02/21 11:08 Total Creatine Kinase 84 units/L (55-170) 06/02/21 11:08 CK-MB (CK-2) 2.4 ng/mL (0.0-4.0) 06/02/21 11:08 CK-MB (CK-2) Rel Index 2.8 (0-4) 06/02/21 11:08 Troponin T 0.012 ng/mL (0.00-0.029) 06/02/21 11:08 C-Reactive Protein < 0.30 mg/dL (0.00-1.30) 06/02/21 11:08 TSH 0.804 mlU/mL (0.270-4.200) 06/02/21 11:08 Free T4 1.06 ng/dL (0.76-1.46) 06/02/21 11:08 Digoxin 0.3 ng/mL (0.9-2.0) L 06/02/21 11:08 Short CBC 06/02/21 Range/Units 11:08 WBC 4.1 L (4.5-11.0) K/mm3 Hgb 13.1 (11.8-15.2) gm/dl Hct 41.1 (35.5-45.6) % Plt Count 217 (140-440) K/mm3 BMP 06/02/21 11:08 Sodium 137 Potassium 4.3 Chloride 97.9 L Carbon Dioxide 25 BUN 18 Creatinine 1.1 Glucose 77 Calcium 9.9 Cardiac Enzymes 06/02/21 Range/Units 11:08 Total Creatine Kinase 84 (55-170) units/L CK-MB (CK-2) 2.4 (0.0-4.0) ng/mL Troponin T 0.012 (0.00-0.029) ng/mL Assessment and Plan Advance Directives: Yes (Full code) VTE prophylaxis?: Chemical Plan of care discussed with patient/family: Yes - Patient Problems (1) Bradycardia Current Visit: Yes Status: Acute Plan to address problem: Admitted for evaluation of bradycardia Atropine as necessary Temporary pacemaker if necessary Cardiology consult requested Possible sick sinus syndrome (2) Peripheral neuropathy Current Visit: Yes Status: Chronic Qualifiers: Peripheral neuropathy type: polyneuropathy, unspecified Qualified Code(s): G62.9 - Polyneuropathy, unspecified Plan to address problem: Initiated on Lyrica 50 mg twice a day (3) DVT prophylaxis Current Visit: No Status: Acute Plan to address problem: On anticoagulation and GI prophylaxis (4) Advance care planning Current Visit: Yes Status: Acute Plan to address problem: Disease education collected, care plan discussed, diagnosis discussed, prognosis discussed. Patient is full code. Patient acknowledges understanding and agreement with care plan. +30 minutes.
[2021-06-03] MEDS: HEPARIN 5,000 UNIT/1 ML VIAL SUB-Q SCH ×3 (00:33→22:08)
[2021-06-03] MEDS: SODIUM CHLORIDE 0.9% 1000 ML 1,000 ML IV SCH ×2 (03:38→19:19)
[2021-06-03 06:03] LABS: Alanine Aminotransferase 9 units/L (7-56); Albumin 3.9 g/dL (3.9-5); BUN/Creatinine Ratio 18; Blood Urea Nitrogen 22 mg/dL (9-20); Calcium 9.1 mg/dL (8.4-10.2); Hemolysis Index 15
--- NOTE | 2021-06-03 10:33 | Progress Note ---
Assessment and Plan - Patient Problems (1) Bradycardia Current Visit: Yes Status: Acute Plan to address problem: Cardiology team consulted, supportive care. Further care and evaluation as per cardiology team. (2) DVT prophylaxis Current Visit: Yes Status: Acute Plan to address problem: SCD to bilateral lower extremities while in bed (3) Advance care planning Current Visit: Yes Status: Acute Plan to address problem: Disease education conducted, care plan discussed, diagnoses discussed, prognosis discussed, patient is full code. Patient knowledges understanding and agreement care plan, +30 minutes. History Interval history: 66 YO Male with Symptomatic Bradycardia, Malnutrition. Patient resting comfortably in bed patient denies pain. Patient denies loss of consciousness or chest pain. No reported nursing events. Hospitalist Physical - Constitutional Vitals: Temp Pulse Resp BP Pulse Ox 98.7 F 52 L 18 139/106 100 06/03/21 08:24 06/03/21 04:17 06/03/21 08:24 06/03/21 08:24 06/03/21 04:17 General appearance: Present: no acute distress, well-nourished - EENT Eyes: Present: PERRL ENT: hearing intact - Neck Neck: Present: supple - Respiratory Respiratory effort: normal Respiratory: negative: CTA - Cardiovascular Rhythm: other (Sinus bradycardia) - Extremities Extremities: no ischemia Peripheral Pulses: within normal limits - Abdominal General gastrointestinal: soft, non-tender, non-distended - Integumentary Integumentary: Present: clear, dry - Psychiatric Psychiatric: cooperative - Neurologic Neurologic: CNII-XII intact HEART Score - HEART Score Age: 45-65 Risk factors: 1-2 risk factors Troponin: Troponin T 0.012 ng/mL (0.00-0.029) 06/02/21 11:08 Troponin: < normal limit - Critical Actions Critical Actions: 0-3 pts:0.9-1.7%risk of adverse cardiac event.Candidate for discharge Results - Labs CBC & Chem 7: 06/02/21 11:08 06/03/21 04:48 Labs: Laboratory Last Values WBC 4.1 K/mm3 (4.5-11.0) L 06/02/21 11:08 RBC 4.87 M/mm3 (3.65-5.03) 06/02/21 11:08 Hgb 13.1 gm/dl (11.8-15.2) 06/02/21 11:08 Hct 41.1 % (35.5-45.6) 06/02/21 11:08 MCV 85 fl (84-94) 06/02/21 11:08 MCH 27 pg (28-32) L 06/02/21 11:08 MCHC 32 % (32-34) 06/02/21 11:08 RDW 15.2 % (13.2-15.2) 06/02/21 11:08 Plt Count 217 K/mm3 (140-440) 06/02/21 11:08 Lymph % (Auto) 28.9 % (13.4-35.0) 06/02/21 11:08 [place] % (Auto) 8.4 % (0.0-7.3) H 06/02/21 11:08 Eos % (Auto) 0.8 % (0.0-4.3) 06/02/21 11:08 Baso % (Auto) 1.0 % (0.0-1.8) 06/02/21 11:08 Lymph # (Auto) 1.2 K/mm3 (1.2-5.4) 06/02/21 11:08 [place] # (Auto) 0.3 K/mm3 (0.0-0.8) 06/02/21 11:08 Eos # (Auto) 0.0 K/mm3 (0.0-0.4) 06/02/21 11:08 Baso # (Auto) 0.0 K/mm3 (0.0-0.1) 06/02/21 11:08 Add Manual Diff Complete 06/02/21 11:08 Seg Neutrophils % 60.9 % (40.0-70.0) 06/02/21 11:08 Seg Neutrophils # 2.5 K/mm3 (1.8-7.7) 06/02/21 11:08 ESR 6 mm/Hr (0-20) 06/02/21 11:08 PT 14.5 Sec. (12.2-14.9) 06/02/21 11:08 INR 1.02 (0.87-1.13) 06/02/21 11:08 APTT 29.2 Sec. (24.2-36.6) 06/02/21 11:08 Sodium 139 mmol/L (137-145) 06/03/21 04:48 Potassium 4.3 mmol/L (3.6-5.0) 06/03/21 04:48 Chloride 101.0 mmol/L (98-107) 06/03/21 04:48 Carbon Dioxide 25 mmol/L (22-30) 06/03/21 04:48 Anion Gap 17 mmol/L 06/03/21 04:48 BUN 22 mg/dL (9-20) H 06/03/21 04:48 Creatinine 1.2 mg/dL (0.8-1.3) 06/03/21 04:48 Estimated GFR > 60 ml/min 06/03/21 04:48 BUN/Creatinine Ratio 18 % 06/03/21 04:48 Glucose 109 mg/dL (75-100) H 06/03/21 04:48 Calcium 9.1 mg/dL (8.4-10.2) 06/03/21 04:48 Magnesium 2.00 mg/dL (1.7-2.3) 06/02/21 11:08 Total Bilirubin 0.20 mg/dL (0.1-1.2) 06/03/21 04:48 AST 13 units/L (5-40) 06/03/21 04:48 ALT 9 units/L (7-56) 06/03/21 04:48 Alkaline Phosphatase 58 units/L (35-129) 06/03/21 04:48 Total Creatine Kinase 84 units/L (55-170) 06/02/21 11:08 CK-MB (CK-2) 2.4 ng/mL (0.0-4.0) 06/02/21 11:08 CK-MB (CK-2) Rel Index 2.8 (0-4) 06/02/21 11:08 Troponin T 0.012 ng/mL (0.00-0.029) 06/02/21 11:08 C-Reactive Protein < 0.30 mg/dL (0.00-1.30) 06/02/21 11:08 Total Protein 6.1 g/dL (6.3-8.2) L 06/03/21 04:48 Albumin 3.9 g/dL (3.9-5) 06/03/21 04:48 Albumin/Globulin Ratio 1.8 % 06/03/21 04:48 TSH 0.804 mlU/mL (0.270-4.200) 06/02/21 11:08 Free T4 1.06 ng/dL (0.76-1.46) 06/02/21 11:08 Digoxin 0.3 ng/mL (0.9-2.0) L 06/02/21 11:08 [place]/IV: Voiding Method Urinal Active Medications - Current Medications Current Medications: Generic Name Dose Route Start Last Admin Trade Name Freq PRN Reason Stop Dose Admin Acetaminophen 650 mg 06/02/21 19:29 Acetaminophen 325 Mg Tab PO Q4H PRN Pain MILD(1-3)/Fever >100.5/IYER Heparin Sodium (Porcine) 5,000 unit 06/02/21 22:00 06/03/21 10:01 Heparin 5,000 Unit/1 Ml Vial SUB-Q 5,000 unit Q12HR JHONATHAN Administration Sodium Chloride 1,000 mls @ 100 mls/hr 06/02/21 19:30 06/03/21 03:38 Nacl 0.9% 1000 Ml IV 100 mls/hr DIRECT JHONATHAN Administration Morphine Sulfate 2 mg 06/02/21 19:29 Morphine 2 Mg/1 Ml Inj IV Q4H PRN Pain, Moderate (4-6) Ondansetron HCl 4 mg 06/02/21 19:29 Ondansetron 4 Mg/2 Ml Inj IV Q8H PRN Nausea And Vomiting Oxycodone/Acetaminophen 1 tab 06/02/21 19:29 Oxycodone /Acetaminophen 5-325mg Tab PO Q6H PRN Pain, Moderate (4-6) Sodium Chloride 10 ml 06/02/21 22:00 06/03/21 10:01 Sodium Chloride 0.9% 10 Ml Flush Syringe IV 10 ml BID JHONATHAN Administration Sodium Chloride 10 ml 06/02/21 19:29 Sodium Chloride 0.9% 10 Ml Flush Syringe IV PRN PRN LINE FLUSH
--- NOTE | 2021-06-03 15:42 | Consultation ---
History of Present Illness Consult date: 06/03/21 Requesting physician: SIERRA ABARCA Consult reason: bradycardia History of present illness: Patient is a 66-year-old male who denies any past medical history who presented to the ED with a complaint of bilateral foot pain that has been going on for 2 to 3 months however has worsened in the last day or 2. Patient reports the last day or 2 he was been unable to walk due to his of bilateral foot pain. Patient reports that he went to [facility] was not given a diagnosis and denies any injury occurring to his feet prior to. In the ED patient was found to also be bradycardic. Patient denies any other complaints including chest pain, nausea, vomiting, lightheadedness, dizziness, or weakness. Patient is previously unknown to our practice. Cardiology is consulted for bradycardia Past History Past Medical History: No medical history Past Surgical History: No surgical history Family history: diabetes Medications and Allergies Allergies Allergy/AdvReac Type Severity Reaction Status Date / Time No Known Allergies Allergy Unverified 01/16/20 14:16 Home Medications Medication Instructions Recorded Confirmed Last Taken Type No Known Home Medications [No 06/03/21 06/03/21 Unknown History Reported Home Medications] Active Meds: Active Medications Acetaminophen (Acetaminophen 325 Mg Tab) 650 mg PO Q4H PRN PRN Reason: Pain MILD(1-3)/Fever >100.5/IYER Heparin Sodium (Porcine) (Heparin 5,000 Unit/1 Ml Vial) 5,000 unit SUB-Q Q12HR [facility] Last Admin: 06/03/21 10:01 Dose: 5,000 unit Sodium Chloride (Nacl 0.9% 1000 Ml) 1,000 mls @ 100 mls/hr IV DIRECT [facility] Last Admin: 06/03/21 03:38 Dose: 100 mls/hr Morphine Sulfate (Morphine 2 Mg/1 Ml Inj) 2 mg IV Q4H PRN PRN Reason: Pain, Moderate (4-6) Ondansetron HCl (Ondansetron 4 Mg/2 Ml Inj) 4 mg IV Q8H PRN PRN Reason: Nausea And Vomiting Oxycodone/Acetaminophen (Oxycodone /Acetaminophen 5-325mg Tab) 1 tab PO Q6H PRN PRN Reason: Pain, Moderate (4-6) Sodium Chloride (Sodium Chloride 0.9% 10 Ml Flush Syringe) 10 ml IV BID [facility] Last Admin: 06/03/21 10:01 Dose: 10 ml Sodium Chloride (Sodium Chloride 0.9% 10 Ml Flush Syringe) 10 ml IV PRN PRN PRN Reason: LINE FLUSH Review of Systems Constitutional: no weight loss, no weight gain Ears, nose, mouth and throat: no nose pain, no nasal congestion, no nasal discharge Cardiovascular: no chest pain, no orthopnea, no palpitations, no syncope, no lightheadedness, no shortness of breath, no dyspnea on exertion Respiratory: no shortness of breath, no dyspnea on exertion Gastrointestinal: no abdominal pain, no nausea, no vomiting Musculoskeletal: other (bilateral foot pain), no neck stiffness, no neck pain, no shooting arm pain Integumentary: no rash, no pruritis, no redness Neurological: no paralysis, no weakness, no parathesias, no syncope Psychiatric: no anxiety, no memory loss Endocrine: no cold intolerance, no heat intolerance Hematologic/Lymphatic: no easy bruising, no easy bleeding Physical Examination Vital Signs Temp Pulse Resp BP Pulse Ox 98.2 F 42 L 16 133/82 98 06/02/21 09:44 06/02/21 09:44 06/02/21 09:44 06/02/21 09:44 06/02/21 09:44 General appearance: no acute distress HEENT: Positive: Normocephaly Neck: Positive: trachea midline Cardiac: Positive: Regular Rhythm, Bradycardia Lungs: Positive: Normal Breath Sounds Neuro: Positive: Grossly Intact Abdomen: Positive: Soft, Active Bowel Sounds Skin: Negative: Rash, Suspicious Lesions, Ulceration Extremities: Present: upper extr. pulses. Absent: edema Results 06/02/21 11:08 06/03/21 04:48 Cardiac Enzymes 06/03/21 Range/Units 04:48 AST 13 (5-40) units/L Comprehensive Metabolic Panel 06/03/21 Range/Units 04:48 Sodium 139 (137-145) mmol/L Potassium 4.3 (3.6-5.0) mmol/L Chloride 101.0 (98-107) mmol/L Carbon Dioxide 25 (22-30) mmol/L BUN 22 H (9-20) mg/dL Creatinine 1.2 (0.8-1.3) mg/dL Glucose 109 H (75-100) mg/dL Calcium 9.1 (8.4-10.2) mg/dL AST 13 (5-40) units/L ALT 9 (7-56) units/L Alkaline Phosphatase 58 (35-129) units/L Total Protein 6.1 L (6.3-8.2) g/dL Albumin 3.9 (3.9-5) g/dL - Imaging and Cardiology Echo: pending EKG interpretations - Telemetry EKG Rhythm: Sinus Bradycardia - EKG Sinus rhythms and dysrhythmias: sinus bradycardia Chamber hypertrophy or enlargement: left ventricular hypertro Assessment and Plan Patient is a 66-year-old male who denies any past medical history who presented to the ED with a complaint of bilateral foot pain that has been going on for 2 to 3 months however has worsened in the last day or 2 and found to be bradycardic Bradycardia Bilateral foot pain Plan: EKG shows sinus bradycardia rate 39 with LVH. No acute ischemic changes patient remains chest pain-free. Troponins negative; repeat troponin pending Telemetry reviewed patient remains sinus bradycardia upper 40s to 50s. Patient remained asymptomatic with no complaints of lightheadedness dizziness and patient remains normotensive Continue to monitor. No AV ariana agents Echo pending Patient seen in conjunction with Dr. Graham who agrees with this plan of care - Patient Problems (1) Bradycardia Current Visit: Yes Status: Acute (2) Peripheral neuropathy Current Visit: Yes Status: Chronic Qualifiers: Peripheral neuropathy type: polyneuropathy, unspecified Qualified Code(s): G62.9 - Polyneuropathy, unspecified
[2021-06-04] MEDS: hydrALAZINE 20 MG/1 ML INJ IV PRN (05:54)
[2021-06-04] MEDS: SODIUM CHLORIDE 0.9% 1000 ML 1,000 ML IV SCH ×2 (06:26→17:43)
[2021-06-04] MEDS: HEPARIN 5,000 UNIT/1 ML VIAL SUB-Q SCH ×2 (10:21→21:39)
--- NOTE | 2021-06-04 14:50 | Progress Note ---
Assessment and Plan Patient is a 66-year-old male who denies any past medical history who presented to the ED with a complaint of bilateral foot pain that has been going on for 2 to 3 months however has worsened in the last day or 2 and found to be bradycardic Bradycardia Bilateral foot pain Echo 06/03/2021-EF 55 to 60%. Mild concentric LVH. Transmitral Doppler flow pattern suggests impaired relaxation right ventricular systolic function is normal interatrial septum is intact with no evidence for atrial septal defect. Atrial septum is bowed toward the right consistent with elevated left atrial pressure Plan: Telemetry reviewed patient remains sinus bradycardia upper 40s to 50s. Patient remains asymptomatic with no complaints of lightheadedness dizziness and patient remains normotensive Continue to monitor. No AV ariana agents Echo results noted above As patient remains asymptomatic and normotensive with a normal echo patient may follow-up as an outpatient for further evaluation Will see as needed Patient to follow-up appoint with Dr. Graham, [facility] dot compliance specialist, on 06/21/2021 at 1 PM in our [place] location. Phone #[phone] Patient seen in conjunction with Dr. Graham who agrees with this plan of care - Patient Problems (1) Bradycardia Current Visit: Yes Status: Acute (2) Peripheral neuropathy Current Visit: Yes Status: Chronic Qualifiers: Peripheral neuropathy type: polyneuropathy, unspecified Qualified Code(s): G62.9 - Polyneuropathy, unspecified Subjective Date of service: 06/04/21 Principal diagnosis: Foot pain, asymptomatic bradycardia Interval history: Patient resting in bed in no acute distress. Patient denies any complaints Patient remains sinus bradycardia's 48-50s Objective Vital Signs Temp Pulse Resp BP Pulse Ox 06/04/21 07:59 98.4 F 47 L 18 175/84 99 06/04/21 05:54 177/96 06/04/21 05:41 98.6 F 57 L 16 177/96 100 06/04/21 03:47 53 L 06/03/21 23:30 98.2 F 44 L 16 153/81 100 06/03/21 21:16 54 L 06/03/21 21:15 15 97 06/03/21 20:05 99.1 F 57 L 16 187/91 100 06/03/21 16:21 98.7 F 56 L 18 134/90 96 - Physical Examination HEENT: Positive: Normocephaly Neck: Positive: trachea midline Cardiac: Positive: Regular Rhythm, Bradycardia Lungs: Positive: Normal Breath Sounds Neuro: Positive: Grossly Intact Abdomen: Positive: Soft, Active Bowel Sounds Skin: Negative: Rash, Suspicious Lesions, Ulceration Extremities: Present: upper extr. pulses. Absent: edema - Imaging and Cardiology Echo: report reviewed - Telemetry EKG Rhythm: Sinus Bradycardia - EKG Sinus rhythms and dysrhythmias: sinus bradycardia Chamber hypertrophy or enlargement: left ventricular hypertro
[2021-06-05] MEDS: SODIUM CHLORIDE 0.9% 1000 ML 1,000 ML IV SCH ×2 (03:40→21:52)
[2021-06-05] MEDS: oxyCODONE /ACETAMINOPHEN 5-325MG TAB PO PRN ×2 (03:41→11:29)
[2021-06-05] MEDS: HEPARIN 5,000 UNIT/1 ML VIAL SUB-Q SCH ×2 (09:38→21:53)
--- NOTE | 2021-06-05 11:25 | Discharge Summary ---
Providers - Providers Date of Admission: 06/02/21 19:29 Attending physician: CRISTHIAN MARIE 06/02/21 19:29 Consult to Physician [CONS] Routine Comment: Consulting Provider: HODA ORELLANA Physician Instructions: Reason For Exam: Bradycardia 06/03/21 04:54 Consult to Wound/ET Nurse [CONS] Routine Reason For Exam: Foot wound evaluation. Primary care physician: SUDARSHAN TEIXEIRA MD Hospitalization Condition: Fair Disposition: 30 STILL A PATIENT Exam - Constitutional Vitals: Temp Pulse Resp BP Pulse Ox 97.8 F 47 L 18 159/85 98 06/05/21 07:44 06/05/21 10:00 06/05/21 07:44 06/05/21 07:44 06/05/21 10:00 Plan Follow up with: SUDARSHAN TEIXEIRA MD [Primary Care Provider] - 3-5 Days
--- NOTE | 2021-06-05 12:38 | Progress Note ---
Assessment and Plan - Patient Problems (1) Bradycardia Current Visit: Yes Status: Acute Plan to address problem: Cardiology team consulted, supportive care. Patient appears to be medically optimized at this time. Telemetry monitoring overnight. Discharge planning in a.m. (2) Homelessness Current Visit: Yes Status: Acute Plan to address problem: Case management team consulted. (3) DVT prophylaxis Current Visit: Yes Status: Acute Plan to address problem: SCD to bilateral lower extremities while in bed (4) Advance care planning Current Visit: Yes Status: Acute Plan to address problem: Disease education conducted, care plan discussed, diagnoses discussed, prognosis discussed, patient is full code. Patient knowledges understanding and agreement care plan, +30 minutes. History Interval history: 66 YO Male HD #3 with Symptomatic Bradycardia, Malnutrition, Homelessness. Patient resting comfortably in bed patient denies pain. Patient denies loss of consciousness or chest pain. No reported nursing events. Hospitalist Physical - Constitutional Vitals: Temp Pulse Resp BP Pulse Ox 98.4 F 47 L 18 163/79 98 06/05/21 11:19 06/05/21 10:00 06/05/21 11:19 06/05/21 11:19 06/05/21 10:00 General appearance: Present: no acute distress, well-nourished - EENT Eyes: Present: PERRL, EOM intact ENT: hearing intact - Neck Neck: Present: supple - Respiratory Respiratory effort: normal Respiratory: bilateral: CTA - Cardiovascular Rhythm: other (Sinus bradycardia) Heart Sounds: Present: S1 & S2 - Extremities Extremities: no ischemia Peripheral Pulses: within normal limits - Abdominal General gastrointestinal: soft, non-tender, non-distended - Integumentary Integumentary: Present: warm, erythema - Psychiatric Psychiatric: cooperative - Neurologic Neurologic: CNII-XII intact HEART Score - HEART Score Age: 45-65 Risk factors: 1-2 risk factors Troponin: Troponin T 0.012 ng/mL (0.00-0.029) 06/02/21 11:08 Troponin: < normal limit - Critical Actions Critical Actions: 0-3 pts:0.9-1.7%risk of adverse cardiac event.Candidate for discharge Results - Labs CBC & Chem 7: 06/02/21 11:08 06/03/21 04:48 Labs: Laboratory Last Values WBC 4.1 K/mm3 (4.5-11.0) L 04/27/22 11:08 RBC 4.87 M/mm3 (3.65-5.03) 06/02/21 11:08 Hgb 13.1 gm/dl (11.8-15.2) 06/02/21 11:08 Hct 41.1 % (35.5-45.6) 06/02/21 11:08 MCV 85 fl (84-94) 06/02/21 11:08 MCH 27 pg (28-32) L 06/02/21 11:08 MCHC 32 % (32-34) 06/02/21 11:08 RDW 15.2 % (13.2-15.2) 06/02/21 11:08 Plt Count 217 K/mm3 (140-440) 06/02/21 11:08 Lymph % (Auto) 28.9 % (13.4-35.0) 06/02/21 11:08 [place] % (Auto) 8.4 % (0.0-7.3) H 06/02/21 11:08 Eos % (Auto) 0.8 % (0.0-4.3) 06/02/21 11:08 Baso % (Auto) 1.0 % (0.0-1.8) 06/02/21 11:08 Lymph # (Auto) 1.2 K/mm3 (1.2-5.4) 06/02/21 11:08 [place] # (Auto) 0.3 K/mm3 (0.0-0.8) 06/02/21 11:08 Eos # (Auto) 0.0 K/mm3 (0.0-0.4) 06/02/21 11:08 Baso # (Auto) 0.0 K/mm3 (0.0-0.1) 06/02/21 11:08 Add Manual Diff Complete 06/02/21 11:08 Seg Neutrophils % 60.9 % (40.0-70.0) 06/02/21 11:08 Seg Neutrophils # 2.5 K/mm3 (1.8-7.7) 06/02/21 11:08 ESR 6 mm/Hr (0-20) 06/02/21 11:08 PT 14.5 Sec. (12.2-14.9) 06/02/21 11:08 INR 1.02 (0.87-1.13) 06/02/21 11:08 APTT 29.2 Sec. (24.2-36.6) 06/02/21 11:08 Sodium 139 mmol/L (137-145) 06/03/21 04:48 Potassium 4.3 mmol/L (3.6-5.0) 06/03/21 04:48 Chloride 101.0 mmol/L (98-107) 06/03/21 04:48 Carbon Dioxide 25 mmol/L (22-30) 06/03/21 04:48 Anion Gap 17 mmol/L 06/03/21 04:48 BUN 22 mg/dL (9-20) H 06/03/21 04:48 Creatinine 1.2 mg/dL (0.8-1.3) 06/03/21 04:48 Estimated GFR > 60 ml/min 06/03/21 04:48 BUN/Creatinine Ratio 18 % 06/03/21 04:48 Glucose 109 mg/dL (75-100) H 06/03/21 04:48 Calcium 9.1 mg/dL (8.4-10.2) 06/03/21 04:48 Magnesium 2.00 mg/dL (1.7-2.3) 06/02/21 11:08 Total Bilirubin 0.20 mg/dL (0.1-1.2) 06/03/21 04:48 AST 13 units/L (5-40) 06/03/21 04:48 ALT 9 units/L (7-56) 06/03/21 04:48 Alkaline Phosphatase 58 units/L (35-129) 06/03/21 04:48 Total Creatine Kinase 84 units/L (55-170) 06/02/21 11:08 CK-MB (CK-2) 2.4 ng/mL (0.0-4.0) 06/02/21 11:08 CK-MB (CK-2) Rel Index 2.8 (0-4) 06/02/21 11:08 Troponin T 0.012 ng/mL (0.00-0.029) 06/02/21 11:08 C-Reactive Protein < 0.30 mg/dL (0.00-1.30) 06/02/21 11:08 Total Protein 6.1 g/dL (6.3-8.2) L 06/03/21 04:48 Albumin 3.9 g/dL (3.9-5) 06/03/21 04:48 Albumin/Globulin Ratio 1.8 % 06/03/21 04:48 TSH 0.804 mlU/mL (0.270-4.200) 06/02/21 11:08 Free T4 1.06 ng/dL (0.76-1.46) 06/02/21 11:08 Digoxin 0.3 ng/mL (0.9-2.0) L 06/02/21 11:08 [place]/IV: Voiding Method Urinal Active Medications - Current Medications Current Medications: Generic Name Dose Route Start Last Admin Trade Name Freq PRN Reason Stop Dose Admin Acetaminophen 650 mg 06/02/21 19:29 Acetaminophen 325 Mg Tab PO Q4H PRN Pain MILD(1-3)/Fever >100.5/IYER Heparin Sodium (Porcine) 5,000 unit 06/02/21 22:00 06/05/21 09:38 Heparin 5,000 Unit/1 Ml Vial SUB-Q 5,000 unit Q12HR JHONATHAN Administration Hydralazine HCl 10 mg 06/04/21 05:43 06/04/21 05:54 Hydralazine 20 Mg/1 Ml Inj IV 10 mg Q4HR PRN Administration Hypertension Sodium Chloride 1,000 mls @ 100 mls/hr 06/02/21 19:30 06/05/21 03:40 Nacl 0.9% 1000 Ml IV 100 mls/hr DIRECT JHONATHAN Administration Morphine Sulfate 2 mg 06/02/21 19:29 Morphine 2 Mg/1 Ml Inj IV Q4H PRN Pain, Moderate (4-6) Ondansetron HCl 4 mg 06/02/21 19:29 Ondansetron 4 Mg/2 Ml Inj IV Q8H PRN Nausea And Vomiting Oxycodone/Acetaminophen 1 tab 06/02/21 19:29 06/05/21 11:29 Oxycodone /Acetaminophen 5-325mg Tab PO 1 tab Q6H PRN Administration Pain, Moderate (4-6) Sodium Chloride 10 ml 06/02/21 22:00 06/05/21 09:38 Sodium Chloride 0.9% 10 Ml Flush Syringe IV 10 ml BID JHONATHAN Administration Sodium Chloride 10 ml 06/02/21 19:29 Sodium Chloride 0.9% 10 Ml Flush Syringe IV PRN PRN LINE FLUSH Nutrition/Malnutrition Assess - Dietary Evaluation Nutrition/Malnutrition Findings: Nutrition Notes Start: 06/03/21 15:35 Freq: Status: Active Protocol: Document 06/03/21 15:35 CATRACHO (Rec: 06/03/21 15:52 [email or web address] [email or web address]) Nutrition Notes Need for Assessment generated from: stave [email or web address],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 Current Diet Regular Diet (since D 06/02). Labs/Tests 06/03: BUN 22, Glu 109. Pertinent Medications 06/03: Nutritionally unremarkable. Height 5 ft 7 in Weight 60.5 kg [place] Body Weight (kg) 67.27 BMI 20.9 Intake Prior to Admission Good Weight change and time frame Pt states having loss, unintentionally, between 14 and 23 lb recently. Weight Status Appropriate Subjective/Other Information RD consult for risk of malnutrition assessment. Pt's PO intake of meals has been Fair (50-75%), according to ADL notes. Pt is on Room Air, O2 saturation @ 97%, according to Physical Assessment History notes. Pt has missing teeth, according to Physical Assessment History notes. Pt shows no signs of concern for risk of malnutrition at the time, according to Physical Assessment History notes. Percent of energy/protein needs met: Prescribed Regular Diet provides for energy/protein needs (2,289 Kcal/89 g) during LOS. Burn Absent Trauma Absent GI Symptoms None Food Allergy No Skin Integrity/Comment Unspecified Dryness & Flaking. Current % PO Fair (50-74%) Minimum of two criteria No #1 Nutrition Diagnosis No nutrition diagnosis at this time Is patient on ventilator? No Is Patient Ambulatory and/or Out of Bed Yes REE-([place]-St. Jeor-ambulatory/OOB) [ 1753.219 [id number]] Calculation Used for Recommendations [place] Jeor Additional Notes Protein: 1-1.2 g/Kg ABW; 61-73 g/day. Fluids: 1 ml/Kcal, or as per MD. Nutrition Intervention Change Diet Order: Continue Regular Diet. Follow-Up By: 06/10/21 Additional Comments Continue monitoring food tolerance, %PO intake of meals , and BM.
[2021-06-05] MEDS: hydrALAZINE 20 MG/1 ML INJ IV PRN (21:47)
[2021-06-06] MEDS: oxyCODONE /ACETAMINOPHEN 5-325MG TAB PO PRN (08:11)
[2021-06-06] MEDS: hydrALAZINE 20 MG/1 ML INJ IV PRN (10:28)
[2021-06-06] MEDS: HEPARIN 5,000 UNIT/1 ML VIAL SUB-Q SCH ×2 (10:29→22:07)
--- NOTE | 2021-06-06 10:55 | Progress Note ---
Assessment and Plan - Patient Problems (1) Bradycardia Current Visit: Yes Status: Acute Plan to address problem: Cardiology team consulted, supportive care. Patient medically optimized at this time and cleared for discharge as per cardiology team. Discharge order entered. (2) Homelessness Current Visit: Yes Status: Acute Plan to address problem: Case management team consulted. (3) DVT prophylaxis Current Visit: Yes Status: Acute Plan to address problem: SCD to bilateral lower extremities while in bed (4) Advance care planning Current Visit: Yes Status: Acute Plan to address problem: Disease education conducted, care plan discussed, diagnoses discussed, prognosis discussed, patient is full code. Patient acknowledges understanding and agreement care plan, +30 minutes. History Interval history: 66 YO Male HD #4 with Asymptomatic Bradycardia , Malnutrition, Homelessness. Patient resting comfortably in bed patient denies pain. Patient denies loss of consciousness or chest pain. No reported nursing events. Pt is medically optimized. Case management consulted. awaiting clearance from case management. Hospitalist Physical - Constitutional Vitals: Temp Pulse Resp BP Pulse Ox 98.1 F 65 18 187/105 100 06/06/21 08:23 06/06/21 08:23 06/06/21 08:23 06/06/21 10:28 06/06/21 08:23 General appearance: Present: no acute distress, well-nourished - EENT Eyes: Present: PERRL, EOM intact ENT: hearing intact - Neck Neck: Present: supple - Respiratory Respiratory effort: normal Respiratory: bilateral: CTA - Cardiovascular Rhythm: other (Sinus bradycardia) - Extremities Extremities: no ischemia Peripheral Pulses: within normal limits - Abdominal General gastrointestinal: soft, non-tender, non-distended - Integumentary Integumentary: Present: clear, dry - Psychiatric Psychiatric: cooperative - Neurologic Neurologic: CNII-XII intact HEART Score - HEART Score Age: 45-65 Risk factors: 1-2 risk factors Troponin: Troponin T 0.012 ng/mL (0.00-0.029) 06/02/21 11:08 Troponin: < normal limit - Critical Actions Critical Actions: 0-3 pts:0.9-1.7%risk of adverse cardiac event.Candidate for discharge Results - Labs CBC & Chem 7: 06/02/21 11:08 06/03/21 04:48 Labs: Laboratory Last Values WBC 4.1 K/mm3 (4.5-11.0) L 06/02/21 11:08 RBC 4.87 M/mm3 (3.65-5.03) 06/02/21 11:08 Hgb 13.1 gm/dl (11.8-15.2) 06/02/21 11:08 Hct 41.1 % (35.5-45.6) 06/02/21 11:08 MCV 85 fl (84-94) 06/02/21 11:08 MCH 27 pg (28-32) L 06/02/21 11:08 MCHC 32 % (32-34) 06/02/21 11:08 RDW 15.2 % (13.2-15.2) 06/02/21 11:08 Plt Count 217 K/mm3 (140-440) 06/02/21 11:08 Lymph % (Auto) 28.9 % (13.4-35.0) 06/02/21 11:08 [place] % (Auto) 8.4 % (0.0-7.3) H 06/02/21 11:08 Eos % (Auto) 0.8 % (0.0-4.3) 06/02/21 11:08 Baso % (Auto) 1.0 % (0.0-1.8) 06/02/21 11:08 Lymph # (Auto) 1.2 K/mm3 (1.2-5.4) 06/02/21 11:08 [place] # (Auto) 0.3 K/mm3 (0.0-0.8) 06/02/21 11:08 Eos # (Auto) 0.0 K/mm3 (0.0-0.4) 06/02/21 11:08 Baso # (Auto) 0.0 K/mm3 (0.0-0.1) 06/02/21 11:08 Add Manual Diff Complete 06/02/21 11:08 Seg Neutrophils % 60.9 % (40.0-70.0) 06/02/21 11:08 Seg Neutrophils # 2.5 K/mm3 (1.8-7.7) 06/02/21 11:08 ESR 6 mm/Hr (0-20) 06/02/21 11:08 PT 14.5 Sec. (12.2-14.9) 06/02/21 11:08 INR 1.02 (0.87-1.13) 06/02/21 11:08 APTT 29.2 Sec. (24.2-36.6) 06/02/21 11:08 Sodium 139 mmol/L (137-145) 06/03/21 04:48 Potassium 4.3 mmol/L (3.6-5.0) 06/03/21 04:48 Chloride 101.0 mmol/L (98-107) 06/03/21 04:48 Carbon Dioxide 25 mmol/L (22-30) 06/03/21 04:48 Anion Gap 17 mmol/L 06/03/21 04:48 BUN 22 mg/dL (9-20) H 06/03/21 04:48 Creatinine 1.2 mg/dL (0.8-1.3) 06/03/21 04:48 Estimated GFR > 60 ml/min 06/03/21 04:48 BUN/Creatinine Ratio 18 % 06/03/21 04:48 Glucose 109 mg/dL (75-100) H 06/03/21 04:48 Calcium 9.1 mg/dL (8.4-10.2) 06/03/21 04:48 Magnesium 2.00 mg/dL (1.7-2.3) 06/02/21 11:08 Total Bilirubin 0.20 mg/dL (0.1-1.2) 06/03/21 04:48 AST 13 units/L (5-40) 06/03/21 04:48 ALT 9 units/L (7-56) 06/03/21 04:48 Alkaline Phosphatase 58 units/L (35-129) 06/03/21 04:48 Total Creatine Kinase 84 units/L (55-170) 06/02/21 11:08 CK-MB (CK-2) 2.4 ng/mL (0.0-4.0) 06/02/21 11:08 CK-MB (CK-2) Rel Index 2.8 (0-4) 06/02/21 11:08 Troponin T 0.012 ng/mL (0.00-0.029) 06/02/21 11:08 C-Reactive Protein < 0.30 mg/dL (0.00-1.30) 06/02/21 11:08 Total Protein 6.1 g/dL (6.3-8.2) L 06/03/21 04:48 Albumin 3.9 g/dL (3.9-5) 06/03/21 04:48 Albumin/Globulin Ratio 1.8 % 06/03/21 04:48 TSH 0.804 mlU/mL (0.270-4.200) 06/02/21 11:08 Free T4 1.06 ng/dL (0.76-1.46) 06/02/21 11:08 Digoxin 0.3 ng/mL (0.9-2.0) L 06/02/21 11:08 Mills/IV: Voiding Method Urinal Active Medications - Current Medications Current Medications: Generic Name Dose Route Start Last Admin Trade Name Freq PRN Reason Stop Dose Admin Acetaminophen 650 mg 06/02/21 19:29 Acetaminophen 325 Mg Tab PO Q4H PRN Pain MILD(1-3)/Fever >100.5/IYER Heparin Sodium (Porcine) 5,000 unit 06/02/21 22:00 06/06/21 10:29 Heparin 5,000 Unit/1 Ml Vial SUB-Q 5,000 unit Q12HR JHONATHAN Administration Hydralazine HCl 10 mg 06/04/21 05:43 06/06/21 10:28 Hydralazine 20 Mg/1 Ml Inj IV 10 mg Q4HR PRN Administration Hypertension Sodium Chloride 1,000 mls @ 100 mls/hr 06/02/21 19:30 06/05/21 21:52 Nacl 0.9% 1000 Ml IV 100 mls/hr DIRECT JHONATHAN Administration Morphine Sulfate 2 mg 06/02/21 19:29 Morphine 2 Mg/1 Ml Inj IV Q4H PRN Pain, Moderate (4-6) Ondansetron HCl 4 mg 06/02/21 19:29 Ondansetron 4 Mg/2 Ml Inj IV Q8H PRN Nausea And Vomiting Oxycodone/Acetaminophen 1 tab 06/02/21 19:29 06/06/21 08:11 Oxycodone /Acetaminophen 5-325mg Tab PO 1 tab Q6H PRN Administration Pain, Moderate (4-6) Sodium Chloride 10 ml 06/02/21 22:00 06/06/21 10:29 Sodium Chloride 0.9% 10 Ml Flush Syringe IV 10 ml BID JHONATHAN Administration Sodium Chloride 10 ml 06/02/21 19:29 Sodium Chloride 0.9% 10 Ml Flush Syringe IV PRN PRN LINE FLUSH Nutrition/Malnutrition Assess - Dietary Evaluation Nutrition/Malnutrition Findings: Nutrition Notes Start: 06/03/21 15:35 Freq: Status: Active Protocol: Document 06/03/21 15:35 CATRACHO (Rec: 06/03/21 15:52 CATRACHO [id number]) Nutrition Notes Need for Assessment 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 Current Diet Regular Diet (since D 06/02). Labs/Tests 06/03: BUN 22, Glu 109. Pertinent Medications 06/03: Nutritionally unremarkable. Height 5 ft 7 in Weight 60.5 kg [place] Body Weight (kg) 67.27 BMI 20.9 Intake Prior to Admission Good Weight change and time frame Pt states having loss, unintentionally, between 14 and 23 lb recently. Weight Status Appropriate Subjective/Other Information RD consult for risk of malnutrition assessment. Pt's PO intake of meals has been Fair (50-75%), according to ADL notes. Pt is on Room Air, O2 saturation @ 97%, according to Physical Assessment History notes. Pt has missing teeth, according to Physical Assessment History notes. Pt shows no signs of concern for risk of malnutrition at the time, according to Physical Assessment History notes. Percent of energy/protein needs met: Prescribed Regular Diet provides for energy/protein needs (2,289 Kcal/89 g) during LOS. Burn Absent Trauma Absent GI Symptoms None Food Allergy No Skin Integrity/Comment Unspecified Dryness & Flaking. Current % PO Fair (50-74%) Minimum of two criteria No #1 Nutrition Diagnosis No nutrition diagnosis at this time Is patient on ventilator? No Is Patient Ambulatory and/or Out of Bed Yes REE-([place]-[facility] [facility]-ambulatory/OOB) [ 1753.219 NUTR.MSJOOB] Calculation Used for Recommendations [place]-[facility] Additional Notes Protein: 1-1.2 g/Kg ABW; 61-73 g/day. Fluids: 1 ml/Kcal, or as per MD. Nutrition Intervention Change Diet Order: Continue Regular Diet. Follow-Up By: 06/10/21 Additional Comments Continue monitoring food tolerance, %PO intake of meals , and BM.
--- NOTE | 2021-06-06 11:06 | Progress Note ---
Assessment and Plan - Patient Problems (1) Bradycardia Current Visit: Yes Status: Acute Plan to address problem: Cardiology team consulted, supportive care. Patient medically optimized at this time and cleared for discharge as per cardiology team. Discharge order entered. (2) Homelessness Current Visit: Yes Status: Acute Plan to address problem: Case management team consulted. (3) DVT prophylaxis Current Visit: Yes Status: Acute Plan to address problem: SCD to bilateral lower extremities while in bed (4) Advance care planning Current Visit: Yes Status: Acute Plan to address problem: Disease education conducted, care plan discussed, diagnoses discussed, prognosis discussed, patient is full code. Patient acknowledges understanding and agreement care plan, +30 minutes. History Interval history: 66 YO Male HD #5 with Asymptomatic Bradycardia with heart rate range 52-65 bmp overnight which is consistent with patient during hospital stay, Malnutrition, Homelessness. Patient resting comfortably in bed patient denies pain. Patient denies loss of consciousness or chest pain. No reported nursing events. Pt is medically optimized. Case management consulted. awaiting clearance from case management. Hospitalist Physical - Constitutional Vitals: Temp Pulse Resp BP Pulse Ox 98.1 F 65 18 187/105 100 06/06/21 08:23 06/06/21 08:23 06/06/21 08:23 06/06/21 10:28 06/06/21 08:23 General appearance: Present: no acute distress, cachectic - EENT Eyes: Present: PERRL ENT: hearing intact - Neck Neck: Present: supple - Respiratory Respiratory effort: normal Respiratory: bilateral: CTA - Cardiovascular Rhythm: other (bradycardia) - Extremities Extremities: no ischemia Peripheral Pulses: within normal limits - Abdominal General gastrointestinal: deferred, non-tender, non-distended - Integumentary Integumentary: Present: clear, dry - Psychiatric Psychiatric: appropriate mood/affect, cooperative - Neurologic Neurologic: CNII-XII intact HEART Score - HEART Score Age: 45-65 Risk factors: 1-2 risk factors Troponin: Troponin T 0.012 ng/mL (0.00-0.029) 06/02/21 11:08 Troponin: < normal limit - Critical Actions Critical Actions: 0-3 pts:0.9-1.7%risk of adverse cardiac event.Candidate for discharge Results - Labs CBC & Chem 7: 06/02/21 11:08 06/03/21 04:48 Labs: Laboratory Last Values WBC 4.1 K/mm3 (4.5-11.0) L 06/02/21 11:08 RBC 4.87 M/mm3 (3.65-5.03) 06/02/21 11:08 Hgb 13.1 gm/dl (11.8-15.2) 06/02/21 11:08 Hct 41.1 % (35.5-45.6) 06/02/21 11:08 MCV 85 fl (84-94) 06/02/21 11:08 MCH 27 pg (28-32) L 06/02/21 11:08 MCHC 32 % (32-34) 06/02/21 11:08 RDW 15.2 % (13.2-15.2) 06/02/21 11:08 Plt Count 217 K/mm3 (140-440) 06/02/21 11:08 Lymph % (Auto) 28.9 % (13.4-35.0) 06/02/21 11:08 [place] % (Auto) 8.4 % (0.0-7.3) H 06/02/21 11:08 Eos % (Auto) 0.8 % (0.0-4.3) 06/02/21 11:08 Baso % (Auto) 1.0 % (0.0-1.8) 06/02/21 11:08 Lymph # (Auto) 1.2 K/mm3 (1.2-5.4) 06/02/21 11:08 [place] # (Auto) 0.3 K/mm3 (0.0-0.8) 06/02/21 11:08 Eos # (Auto) 0.0 K/mm3 (0.0-0.4) 06/02/21 11:08 Baso # (Auto) 0.0 K/mm3 (0.0-0.1) 06/02/21 11:08 Add Manual Diff Complete 06/02/21 11:08 Seg Neutrophils % 60.9 % (40.0-70.0) 06/02/21 11:08 Seg Neutrophils # 2.5 K/mm3 (1.8-7.7) 06/02/21 11:08 ESR 6 mm/Hr (0-20) 06/02/21 11:08 PT 14.5 Sec. (12.2-14.9) 06/02/21 11:08 INR 1.02 (0.87-1.13) 06/02/21 11:08 APTT 29.2 Sec. (24.2-36.6) 06/02/21 11:08 Sodium 139 mmol/L (137-145) 06/03/21 04:48 Potassium 4.3 mmol/L (3.6-5.0) 06/03/21 04:48 Chloride 101.0 mmol/L (98-107) 06/03/21 04:48 Carbon Dioxide 25 mmol/L (22-30) 06/03/21 04:48 Anion Gap 17 mmol/L 06/03/21 04:48 BUN 22 mg/dL (9-20) H 06/03/21 04:48 Creatinine 1.2 mg/dL (0.8-1.3) 06/03/21 04:48 Estimated GFR > 60 ml/min 06/03/21 04:48 BUN/Creatinine Ratio 18 % 06/03/21 04:48 Glucose 109 mg/dL (75-100) H 06/03/21 04:48 Calcium 9.1 mg/dL (8.4-10.2) 06/03/21 04:48 Magnesium 2.00 mg/dL (1.7-2.3) 06/02/21 11:08 Total Bilirubin 0.20 mg/dL (0.1-1.2) 06/03/21 04:48 AST 13 units/L (5-40) 06/03/21 04:48 ALT 9 units/L (7-56) 06/03/21 04:48 Alkaline Phosphatase 58 units/L (35-129) 06/03/21 04:48 Total Creatine Kinase 84 units/L (55-170) 06/02/21 11:08 CK-MB (CK-2) 2.4 ng/mL (0.0-4.0) 06/02/21 11:08 CK-MB (CK-2) Rel Index 2.8 (0-4) 06/02/21 11:08 Troponin T 0.012 ng/mL (0.00-0.029) 06/02/21 11:08 C-Reactive Protein < 0.30 mg/dL (0.00-1.30) 06/02/21 11:08 Total Protein 6.1 g/dL (6.3-8.2) L 06/03/21 04:48 Albumin 3.9 g/dL (3.9-5) 06/03/21 04:48 Albumin/Globulin Ratio 1.8 % 06/03/21 04:48 TSH 0.804 mlU/mL (0.270-4.200) 06/02/21 11:08 Free T4 1.06 ng/dL (0.76-1.46) 06/02/21 11:08 Digoxin 0.3 ng/mL (0.9-2.0) L 06/02/21 11:08 Mills/IV: Voiding Method Urinal Active Medications - Current Medications Current Medications: Generic Name Dose Route Start Last Admin Trade Name Freq PRN Reason Stop Dose Admin Acetaminophen 650 mg 06/02/21 19:29 Acetaminophen 325 Mg Tab PO Q4H PRN Pain MILD(1-3)/Fever >100.5/IYER Heparin Sodium (Porcine) 5,000 unit 06/02/21 22:00 06/06/21 10:29 Heparin 5,000 Unit/1 Ml Vial SUB-Q 5,000 unit Q12HR JHONATHAN Administration Hydralazine HCl 10 mg 06/04/21 05:43 06/06/21 10:28 Hydralazine 20 Mg/1 Ml Inj IV 10 mg Q4HR PRN Administration Hypertension Sodium Chloride 1,000 mls @ 100 mls/hr 06/02/21 19:30 06/05/21 21:52 Nacl 0.9% 1000 Ml IV 100 mls/hr DIRECT JHONATHAN Administration Morphine Sulfate 2 mg 06/02/21 19:29 Morphine 2 Mg/1 Ml Inj IV Q4H PRN Pain, Moderate (4-6) Ondansetron HCl 4 mg 06/02/21 19:29 Ondansetron 4 Mg/2 Ml Inj IV Q8H PRN Nausea And Vomiting Oxycodone/Acetaminophen 1 tab 06/02/21 19:29 06/06/21 08:11 Oxycodone /Acetaminophen 5-325mg Tab PO 1 tab Q6H PRN Administration Pain, Moderate (4-6) Sodium Chloride 10 ml 06/02/21 22:00 06/06/21 10:29 Sodium Chloride 0.9% 10 Ml Flush Syringe IV 10 ml BID JHONATHAN Administration Sodium Chloride 10 ml 06/02/21 19:29 Sodium Chloride 0.9% 10 Ml Flush Syringe IV PRN PRN LINE FLUSH Nutrition/Malnutrition Assess - Dietary Evaluation Nutrition/Malnutrition Findings: Nutrition Notes Start: 06/03/21 15:35 Freq: Status: Active Protocol: Document 06/03/21 15:35 CATRACHO (Rec: 06/03/21 15:52 CATRACHO [id number]) Nutrition Notes Need for Assessment 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 Current Diet Regular Diet (since D 06/02). Labs/Tests 06/03: BUN 22, Glu 109. Pertinent Medications 06/03: Nutritionally unremarkable. Height 5 ft 7 in Weight 60.5 kg [place] Body Weight (kg) 67.27 BMI 20.9 Intake Prior to Admission Good Weight change and time frame Pt states having loss, unintentionally, between 14 and 23 lb recently. Weight Status Appropriate Subjective/Other Information RD consult for risk of malnutrition assessment. Pt's PO intake of meals has been Fair (50-75%), according to ADL notes. Pt is on Room Air, O2 saturation @ 97%, according to Physical Assessment History notes. Pt has missing teeth, according to Physical Assessment History notes. Pt shows no signs of concern for risk of malnutrition at the time, according to Physical Assessment History notes. Percent of energy/protein needs met: Prescribed Regular Diet provides for energy/protein needs (2,289 Kcal/89 g) during LOS. Burn Absent Trauma Absent GI Symptoms None Food Allergy No Skin Integrity/Comment Unspecified Dryness & Flaking. Current % PO Fair (50-74%) Minimum of two criteria No #1 Nutrition Diagnosis No nutrition diagnosis at this time Is patient on ventilator? No Is Patient Ambulatory and/or Out of Bed Yes REE-([facility]. or-ambulatory/OOB) [ 1753.219 NUTR.MSJOOB] [facility] Additional Notes Protein: 1-1.2 g/Kg ABW; 61-73 g/day. Fluids: 1 ml/Kcal, or as per MD. Nutrition Intervention Change Diet Order: Continue Regular Diet. Follow-Up By: 06/10/21 Additional Comments Continue monitoring food tolerance, %PO intake of meals , and BM.
[2021-06-07] MEDS: HEPARIN 5,000 UNIT/1 ML VIAL SUB-Q SCH ×2 (09:02→21:49)
[2021-06-08] MEDS: HEPARIN 5,000 UNIT/1 ML VIAL SUB-Q SCH ×2 (10:21→22:39)
--- NOTE | 2021-06-08 19:22 | Progress Note ---
Assessment and Plan - Patient Problems (1) Bradycardia Current Visit: Yes Status: Acute Plan to address problem: Telemetry reviewed patient remains sinus bradycardia mid 50s. Patient remains asymptomatic with no complaints of lightheadedness dizziness and patient remains normotensive Continue to monitor. No AV ariana agents As patient remains asymptomatic and normotensive with a normal echo patient may follow-up as an outpatient for further evaluation Will see as needed Patient to follow-up appoint with Dr. Graham, [facility] pensions retirement plan specialist, on 06/21/2021 at 1 PM in our [place] location. Phone #[phone] Patient seen in conjunction with Dr. Graham who agrees with this plan of care (2) Peripheral neuropathy Current Visit: Yes Status: Chronic Qualifiers: Peripheral neuropathy type: polyneuropathy, unspecified Qualified Code(s): G62.9 - Polyneuropathy, unspecified Plan to address problem: Initiated on Lyrica 50 mg twice a day (3) DVT prophylaxis Current Visit: No Status: Acute Plan to address problem: On anticoagulation and GI prophylaxis (4) Advance care planning Current Visit: Yes Status: Acute Plan to address problem: Disease education collected, care plan discussed, diagnosis discussed, prognosis discussed. Patient is full code. Patient acknowledges understanding and agreement with care plan. +30 minutes. Subjective Date of service: 06/07/21 Principal diagnosis: Foot pain, asymptomatic bradycardia Interval history: History Interval history: 66 YO Male HD #4 with Asymptomatic Bradycardia , Malnutrition, Homelessness. Pa tient resting comfortably in bed patient denies pain. Patient denies loss of consciousness or chest pain. No reported nursing events. Pt is medically optimized. Case management consulted. awaiting clearance from case management. 06/07/21 Waiting for placement Objective - Constitutional Vitals: Vital Signs - 12hr 06/08/21 06/08/21 06/08/21 07:54 10:00 11:31 Temperature 98.1 F 98.1 F Pulse Rate 53 L 67 Respiratory 16 16 Rate Blood Pressure 148/79 125/68 Blood Pressure [Left] O2 Sat by Pulse 100 97 99 Oximetry 06/08/21 06/08/21 12:00 15:40 Temperature 98.2 F Pulse Rate 77 64 Respiratory 18 Rate Blood Pressure Blood Pressure 143/71 [Left] O2 Sat by Pulse 95 Oximetry General appearance: Present: no acute distress, well-nourished - EENT Eyes: PERRL, EOM intact ENT: hearing intact, clear oral mucosa Ears: bilateral: normal - Neck Neck: supple, normal ROM - Respiratory Respiratory effort: normal Respiratory: bilateral: CTA - Breasts Breasts: normal - Cardiovascular Heart rate: 78 Rhythm: regular Heart Sounds: Present: S1 & S2. Absent: gallop, rub Extremities: pulses intact, No edema, normal color, Full ROM - Gastrointestinal General gastrointestinal: Present: soft, non-tender, non-distended, normal bowel sounds - Genitourinary Male genitourinary: normal - Integumentary Integumentary: clear, warm, dry - Musculoskeletal Musculoskeletal: 1, strength equal bilaterally - Neurologic Neurologic: moves all extremities - Psychiatric Psychiatric: memory intact, appropriate mood/affect, intact judgment & insight - Labs CBC & Chem 7: 06/02/21 11:08 06/03/21 04:48 HEART Score - HEART Score Age: 45-65 Risk factors: 1-2 risk factors Troponin: Troponin T 0.012 ng/mL (0.00-0.029) 06/02/21 11:08 Troponin: < normal limit - Critical Actions Critical Actions: 0-3 pts:0.9-1.7%risk of adverse cardiac event.Candidate for discharge
--- NOTE | 2021-06-08 19:22 | Progress Note ---
Assessment and Plan - Patient Problems (1) Bradycardia Current Visit: Yes Status: Acute Plan to address problem: Asymptomatic Heart rate 51-57 No further work-up Patient to follow-up with Dr. Guajardo as outpatient (2) Peripheral neuropathy Current Visit: Yes Status: Chronic Qualifiers: Peripheral neuropathy type: polyneuropathy, unspecified Qualified Code(s): G62.9 - Polyneuropathy, unspecified Plan to address problem: Initiated on Lyrica 50 mg twice a day (3) DVT prophylaxis Current Visit: No Status: Acute Plan to address problem: On anticoagulation and GI prophylaxis (4) Advance care planning Current Visit: Yes Status: Acute Subjective Date of service: 06/08/21 Principal diagnosis: Foot pain, asymptomatic bradycardia Interval history: History Interval history: 66 YO Male HD #4 with Asymptomatic Bradycardia , Malnutrition, Homelessness. Patient resting comfortably in bed patient denies pain. Patient denies loss of consciousness or chest pain. No reported nursing events. Pt is medically optimized. Case management consulted. awaiting clearance from case management. 06/07/21 Waiting for placement 06/08/21 Waiting for placement Objective - Constitutional Vitals: Vital Signs - 12hr 06/08/21 06/08/21 06/08/21 07:54 10:00 11:31 Temperature 98.1 F 98.1 F Pulse Rate 53 L 67 Respiratory 16 16 Rate Blood Pressure 148/79 125/68 Blood Pressure [Left] O2 Sat by Pulse 100 97 99 Oximetry 06/08/21 06/08/21 12:00 15:40 Temperature 98.2 F Pulse Rate 77 64 Respiratory 18 Rate Blood Pressure Blood Pressure 143/71 [Left] O2 Sat by Pulse 95 Oximetry General appearance: Present: no acute distress, well-nourished - EENT Eyes: PERRL, EOM intact ENT: hearing intact, clear oral mucosa Ears: bilateral: normal - Neck Neck: supple, normal ROM - Respiratory Respiratory effort: normal Respiratory: bilateral: CTA - Breasts Breasts: normal - Cardiovascular Heart rate: 51 Rhythm: regular Heart Sounds: Present: S1 & S2. Absent: gallop, rub Extremities: pulses intact, No edema, normal color, Full ROM - Gastrointestinal General gastrointestinal: Present: soft, non-tender, non-distended, normal bowel sounds - Genitourinary Male genitourinary: normal - Integumentary Integumentary: clear, warm, dry - Musculoskeletal Musculoskeletal: 1, strength equal bilaterally - Neurologic Neurologic: moves all extremities - Psychiatric Psychiatric: memory intact, appropriate mood/affect, intact judgment & insight - Labs CBC & Chem 7: 06/02/21 11:08 06/03/21 04:48 HEART Score - HEART Score Age: 45-65 Risk factors: 1-2 risk factors Troponin: Troponin T 0.012 ng/mL (0.00-0.029) 06/02/21 11:08 Troponin: < normal limit - Critical Actions Critical Actions: 0-3 pts:0.9-1.7%risk of adverse cardiac event.Candidate for discharge
[2021-06-09] MEDS: HEPARIN 5,000 UNIT/1 ML VIAL SUB-Q SCH ×2 (11:00→21:18)
[2021-06-09] MEDS: hydrALAZINE 20 MG/1 ML INJ IV PRN (11:00)
[2021-06-10] MEDS: HEPARIN 5,000 UNIT/1 ML VIAL SUB-Q SCH ×2 (10:44→21:41)
[2021-06-10] MEDS: hydrALAZINE 20 MG/1 ML INJ IV PRN (10:44)
--- NOTE | 2021-06-11 07:35 | Progress Note ---
Assessment and Plan - Patient Problems (1) Bradycardia Current Visit: Yes Status: Acute Plan to address problem: Echo 06/03/2021-EF 55 to 60%. Mild concentric LVH. Transmitral Doppler flow pattern suggests impaired relaxation right ventricular systolic function is normal interatrial septum is intact with no evidence for atrial septal defect. Atrial septum is bowed toward the right consistent with elevated left atrial pressure Telemetry reviewed patient remains sinus bradycardia low 50s to mid 50's. Patient remains asymptomatic with no complaints of lightheadedness dizziness and patient remains normotensive Continue to monitor. No AV ariana agents Echo results noted above As patient remains asymptomatic and normotensive with a normal echo patient may follow-up as an outpatient for further evaluation Will see as needed Patient to follow-up appoint with Dr. Graham, [facility] commodity specialist, on 06/21/2021 at 1 PM in our [place] location. Phone #[phone] Patient seen in conjunction with Dr. Graham who agrees with this plan of care (2) Peripheral neuropathy Current Visit: Yes Status: Chronic Qualifiers: Peripheral neuropathy type: polyneuropathy, unspecified Qualified Code(s): G62.9 - Polyneuropathy, unspecified Plan to address problem: Initiated on Lyrica 50 mg twice a day (3) DVT prophylaxis Current Visit: No Status: Acute Plan to address problem: On anticoagulation and GI prophylaxis (4) Advance care planning Current Visit: Yes Status: Acute Plan to address problem: Disease education collected, care plan discussed, diagnosis discussed, prognosis discussed. Patient is full code. Patient acknowledges understanding and agreement with care plan. +30 minutes. Subjective Date of service: 06/09/21 Principal diagnosis: Foot pain, asymptomatic bradycardia Interval history: History Interval history: 66 YO Male HD #4 with Asymptomatic Bradycardia , Malnutrition, Homelessness. Pa tient resting comfortably in bed patient denies pain. Patient denies loss of consciousness or chest pain. No reported nursing events. Pt is medically optimized. Case management consulted. awaiting clearance from case management. 06/07/21 Waiting for placement 06/08/21 Waiting for placement 06/09/21 Waiting for placement Objective - Constitutional Vitals: Vital Signs - 12hr 06/10/21 06/10/21 06/10/21 19:41 20:45 20:55 Temperature 98.1 F Pulse Rate 57 L 52 L Respiratory 15 Rate Blood Pressure 148/71 O2 Sat by Pulse 96 99 Oximetry 06/10/21 06/11/21 06/11/21 23:30 00:00 03:35 Temperature 98.1 F 98.3 F Pulse Rate 57 L 60 56 L Respiratory 19 12 Rate Blood Pressure 136/66 143/71 O2 Sat by Pulse 99 98 Oximetry 06/11/21 04:15 Temperature Pulse Rate 51 L Respiratory Rate Blood Pressure O2 Sat by Pulse Oximetry General appearance: Present: no acute distress, well-nourished - EENT Eyes: PERRL, EOM intact ENT: hearing intact, clear oral mucosa Ears: bilateral: normal - Neck Neck: supple, normal ROM - Respiratory Respiratory effort: normal Respiratory: bilateral: CTA - Breasts Breasts: normal - Cardiovascular Heart rate: 55 Rhythm: regular Heart Sounds: Present: S1 & S2. Absent: gallop, rub Extremities: pulses intact, No edema, normal color, Full ROM - Gastrointestinal General gastrointestinal: Present: soft, non-tender, non-distended, normal bowel sounds - Genitourinary Male genitourinary: normal - Integumentary Integumentary: clear, warm, dry - Musculoskeletal Musculoskeletal: 1, strength equal bilaterally - Neurologic Neurologic: moves all extremities - Psychiatric Psychiatric: memory intact, appropriate mood/affect, intact judgment & insight - Labs CBC & Chem 7: 06/02/21 11:08 06/03/21 04:48 HEART Score - HEART Score Age: 45-65 Risk factors: 1-2 risk factors Troponin: Troponin T 0.012 ng/mL (0.00-0.029) 06/02/21 11:08 Troponin: < normal limit - Critical Actions Critical Actions: 0-3 pts:0.9-1.7%risk of adverse cardiac event.Candidate for discharge
--- NOTE | 2021-06-11 07:35 | Progress Note ---
Assessment and Plan - Patient Problems (1) Bradycardia Current Visit: Yes Status: Acute Plan to address problem: Echo 06/03/2021-EF 55 to 60%. Mild concentric LVH. Transmitral Doppler flow pattern suggests impaired relaxation right ventricular systolic function is normal interatrial septum is intact with no evidence for atrial septal defect. Atrial septum is bowed toward the right consistent with elevated left atrial pressure Plan: Telemetry reviewed patient remains sinus bradycardia upper 40s to 50s. Patient remains asymptomatic with no complaints of lightheadedness dizziness and patient remains normotensive Continue to monitor. No AV ariana agents Echo results noted above As patient remains asymptomatic and normotensive with a normal echo patient may follow-up as an outpatient for further evaluation Will see as needed Patient to follow-up appoint with Dr. Graham, [facility] air quality instrument specialist, on 06/21/2021 at 1 PM in our [place] location. Phone #[phone] Patient seen in conjunction with Dr. Graham who agrees with this plan of care (2) Peripheral neuropathy Current Visit: Yes Status: Chronic Qualifiers: Peripheral neuropathy type: polyneuropathy, unspecified Qualified Code(s): G62.9 - Polyneuropathy, unspecified Plan to address problem: Initiated on Lyrica 50 mg twice a day (3) DVT prophylaxis Current Visit: No Status: Acute Plan to address problem: On anticoagulation and GI prophylaxis (4) Advance care planning Current Visit: Yes Status: Acute Plan to address problem: Disease education collected, care plan discussed, diagnosis discussed, prognosis discussed. Patient is full code. Patient acknowledges understanding and a greement with care plan. +30 minutes. Subjective Date of service: 06/10/21 Principal diagnosis: Foot pain, asymptomatic bradycardia Interval history: History Interval history: 66 YO Male HD #4 with Asymptomatic Bradycardia , Malnutrition, Homelessness. Patient resting comfortably in bed patient denies pain. Patient denies loss of consciousness or chest pain. No reported nursing events. Pt is medically optimized. Case management consulted. awaiting clearance from case management. 06/07/21 Waiting for placement 06/08/21 Waiting for placement 06/09/21 Waiting for placement 06/10/21 Waiting for placement Objective - Constitutional Vitals: Vital Signs - 12hr 06/10/21 06/10/21 06/10/21 19:41 20:45 20:55 Temperature 98.1 F Pulse Rate 57 L 52 L Respiratory 15 Rate Blood Pressure 148/71 O2 Sat by Pulse 96 99 Oximetry 06/10/21 06/11/21 06/11/21 23:30 00:00 03:35 Temperature 98.1 F 98.3 F Pulse Rate 57 L 60 56 L Respiratory 19 12 Rate Blood Pressure 136/66 143/71 O2 Sat by Pulse 99 98 Oximetry 06/11/21 04:15 Temperature Pulse Rate 51 L Respiratory Rate Blood Pressure O2 Sat by Pulse Oximetry General appearance: Present: no acute distress, well-nourished - EENT Eyes: PERRL, EOM intact ENT: hearing intact, clear oral mucosa Ears: bilateral: normal - Neck Neck: supple, normal ROM - Respiratory Respiratory effort: normal Respiratory: bilateral: CTA - Breasts Breasts: normal - Cardiovascular Heart rate: 55 Rhythm: regular Heart Sounds: Present: S1 & S2. Absent: gallop, rub Extremities: pulses intact, No edema, normal color, Full ROM - Gastrointestinal General gastrointestinal: Present: soft, non-tender, non-distended, normal bowel sounds - Genitourinary Male genitourinary: normal - Integumentary Integumentary: clear, warm, dry - Musculoskeletal Musculoskeletal: 1, strength equal bilaterally - Neurologic Neurologic: moves all extremities - Psychiatric Psychiatric: memory intact, appropriate mood/affect, intact judgment & insight - Labs CBC & Chem 7: 06/02/21 11:08 06/03/21 04:48 HEART Score - HEART Score Age: 45-65 Risk factors: 1-2 risk factors Troponin: Troponin T 0.012 ng/mL (0.00-0.029) 06/02/21 11:08 Troponin: < normal limit - Critical Actions Critical Actions: 0-3 pts:0.9-1.7%risk of adverse cardiac event.Candidate for discharge
[2021-06-11] MEDS: HEPARIN 5,000 UNIT/1 ML VIAL SUB-Q SCH ×2 (09:45→21:19)
--- NOTE | 2021-06-11 18:02 | Vascular Lab Report ---
Ultrasound bilateral lower extremity arterial Doppler INDICATION: Neuropathy FINDINGS: Right: Distal iliac velocity 170 cm/s. STUDENT ADVISOR velocity 95 cm/s. SFA velocity ranges from 106-142 cm/s. Poplitea l artery velocity measures a prosthesis 70 cm/s. Biphasic and triphasic waveforms throughout. Left: Normal velocities throughout the left lower extremity with triphasic waveforms proximally and biphasi c flow from the popliteal artery into the lower extremity. IMPRESSION: No severe stenosis is seen. Signer Name: Carlton Rma MD Signed: 06/11/2021 5:58 PM Workstation Name: [id number]
[2021-06-12] MEDS: HEPARIN 5,000 UNIT/1 ML VIAL SUB-Q SCH ×2 (09:17→21:20)
[2021-06-12] MEDS: hydrALAZINE 20 MG/1 ML INJ IV PRN (23:01)
--- NOTE | 2021-06-13 00:14 | Progress Note ---
Assessment and Plan - Patient Problems (1) Bradycardia Current Visit: Yes Status: Acute Plan to address problem: Echo 06/03/2021-EF 55 to 60%. Mild concentric LVH. Transmitral Doppler flow pattern suggests impaired relaxation right ventricular systolic function is normal interatrial septum is intact with no evidence for atrial septal defect. Atrial septum is bowed toward the right consistent with elevated left atrial pressure Telemetry reviewed patient remains sinus bradycardia upper 40s to 50s. Patient remains asymptomatic with no complaints of lightheadedness dizziness and patient remains normotensive Continue to monitor. No AV ariana agents Echo results noted above As patient remains asymptomatic and normotensive with a normal echo patient may follow-up as an outpatient for further evaluation Will see as needed Patient to follow-up appoint with Dr. Graham, [facility] ep specialist, on 06/21/2021 at 1 PM in our [place] location. Phone #[phone] Patient seen in conjunction with Dr. Graham who agrees with this plan of care (2) Peripheral neuropathy Current Visit: Yes Status: Chronic Qualifiers: Peripheral neuropathy type: polyneuropathy, unspecified Qualified Code(s): G62.9 - Polyneuropathy, unspecified Plan to address problem: Initiated on Lyrica 50 mg twice a day (3) DVT prophylaxis Current Visit: No Status: Acute Plan to address problem: On anticoagulation and GI prophylaxis (4) Advance care planning Current Visit: Yes Status: Acute Plan to address problem: Disease education collected, care plan discussed, diagnosis discussed, prognosis discussed. Patient is full code. Patient acknowledges understanding and agree ment with care plan. +30 minutes. Subjective Date of service: 06/11/21 Principal diagnosis: Foot pain, asymptomatic bradycardia Interval history: History Interval history: 66 YO Male HD #4 with Asymptomatic Bradycardia , Malnutrition, Homelessness. Patient resting comfortably in bed patient denies pain. Patient denies loss of consciousness or chest pain. No reported nursing events. Pt is medically optimized. Case management consulted. awaiting clearance from case management. 06/07/21 Waiting for placement 06/08/21 Waiting for placement 06/09/21 Waiting for placement 06/10/21 Waiting for placement 06/11/21 Symptomatic Waiting for placement Objective - Constitutional Vitals: Vital Signs - 12hr 06/12/21 06/12/21 06/12/21 16:56 19:00 22:00 Temperature 98.4 F Pulse Rate 52 L 53 L Respiratory 18 Rate Blood Pressure 164/77 O2 Sat by Pulse 100 100 Oximetry 06/12/21 06/12/21 22:01 23:01 Temperature 98.5 F Pulse Rate 57 L 57 L Respiratory 18 Rate Blood Pressure 168/85 168/85 O2 Sat by Pulse 100 Oximetry General appearance: Present: no acute distress, well-nourished - EENT Eyes: PERRL, EOM intact ENT: hearing intact, clear oral mucosa Ears: bilateral: normal - Neck Neck: supple, normal ROM - Respiratory Respiratory effort: normal Respiratory: bilateral: CTA - Breasts Breasts: normal - Cardiovascular Heart rate: 57 Rhythm: regular Heart Sounds: Present: S1 & S2. Absent: gallop, rub Extremities: pulses intact, No edema, normal color, Full ROM - Gastrointestinal General gastrointestinal: Present: soft, non-tender, non-distended, normal bowel sounds - Genitourinary Male genitourinary: normal - Integumentary Integumentary: clear, warm, dry - Musculoskeletal Musculoskeletal: 1, strength equal bilaterally - Neurologic Neurologic: moves all extremities - Psychiatric Psychiatric: memory intact, appropriate mood/affect, intact judgment & insight - Labs CBC & Chem 7: 06/02/21 11:08 06/03/21 04:48 HEART Score - HEART Score Age: 45-65 Risk factors: 1-2 risk factors Troponin: Troponin T 0.012 ng/mL (0.00-0.029) 06/02/21 11:08 Troponin: < normal limit - Critical Actions Critical Actions: 0-3 pts:0.9-1.7%risk of adverse cardiac event.Candidate for discharge
--- NOTE | 2021-06-13 00:17 | Progress Note ---
Assessment and Plan - Patient Problems (1) Bradycardia Current Visit: Yes Status: Acute Plan to address problem: Admitted for evaluation of bradycardia Atropine as necessary Temporary pacemaker if necessary Cardiology consult requested Possible sick sinus syndrome (2) Peripheral neuropathy Current Visit: Yes Status: Chronic Qualifiers: Peripheral neuropathy type: polyneuropathy, unspecified Qualified Code(s): G62.9 - Polyneuropathy, unspecified Plan to address problem: Initiated on Lyrica 50 mg twice a day (3) DVT prophylaxis Current Visit: No Status: Acute Plan to address problem: On anticoagulation and GI prophylaxis (4) Advance care planning Current Visit: Yes Status: Acute Plan to address problem: Disease education collected, care plan discussed, diagnosis discussed, prognosis discussed. Patient is full code. Patient acknowledges understanding and agreement with care plan. +30 minutes. Subjective Date of service: 06/12/21 Principal diagnosis: Foot pain, asymptomatic bradycardia Interval history: History Interval history: 66 YO Male HD #4 with Asymptomatic Bradycardia , Malnutrition, Homelessness. Patient resting comfortably in bed patient denies pain. Patient denies loss of consciousness or chest pain. No reported nursing events. Pt is medically optimized. Case management consulted. awaiting clearance from case management. 06/07/21 Waiting for placement 06/08/21 Waiting for placement 06/09/21 Waiting for placement 06/10/21 Waiting for placement 06/11/21 Symptomatic Waiting for placement 06/12/21 WAITING FOR PLACEMENT Sx better Objective - Constitutional Vitals: Vital Signs - 12hr 06/12/21 06/12/21 06/12/21 16:56 19:00 22:00 Temperature 98.4 F Pulse Rate 52 L 53 L Respiratory 18 Rate Blood Pressure 164/77 O2 Sat by Pulse 100 100 Oximetry 06/12/21 06/12/21 22:01 23:01 Temperature 98.5 F Pulse Rate 57 L 57 L Respiratory 18 Rate Blood Pressure 168/85 168/85 O2 Sat by Pulse 100 Oximetry General appearance: Present: no acute distress, well-nourished - EENT Eyes: PERRL, EOM intact ENT: hearing intact, clear oral mucosa Ears: bilateral: normal - Neck Neck: supple, normal ROM - Respiratory Respiratory effort: normal Respiratory: bilateral: CTA - Breasts Breasts: normal - Cardiovascular Rhythm: regular Heart Sounds: Present: S1 & S2. Absent: gallop, rub Extremities: pulses intact, No edema, normal color, Full ROM - Gastrointestinal General gastrointestinal: Present: soft, non-tender, non-distended, normal bowel sounds - Genitourinary Male genitourinary: normal - Integumentary Integumentary: clear, warm, dry - Musculoskeletal Musculoskeletal: 1, strength equal bilaterally - Neurologic Neurologic: moves all extremities - Psychiatric Psychiatric: memory intact, appropriate mood/affect, intact judgment & insight - Labs CBC & Chem 7: 06/02/21 11:08 06/03/21 04:48 HEART Score - HEART Score Age: 45-65 Risk factors: 1-2 risk factors Troponin: Troponin T 0.012 ng/mL (0.00-0.029) 06/02/21 11:08 Troponin: < normal limit - Critical Actions Critical Actions: 0-3 pts:0.9-1.7%risk of adverse cardiac event.Candidate for discharge
--- NOTE | 2021-06-13 00:18 | Progress Note ---
Assessment and Plan - Patient Problems (1) Bradycardia Current Visit: Yes Status: Acute Plan to address problem: Telemetry reviewed patient remains sinus bradycardia mid 50s. Patient remains asymptomatic with no complaints of lightheadedness dizziness and patient remains normotensive Continue to monitor. No AV ariana agents As patient remains asymptomatic and normotensive with a normal echo patient may follow-up as an outpatient for further evaluation Will see as needed Patient to follow-up appoint with Dr. Graham, [facility] news specialist, on 06/21/2021 at 1 PM in our [place] location. Phone #[phone] Patient seen in conjunction with Dr. Graham who agrees with this plan of care (2) Peripheral neuropathy Current Visit: Yes Status: Chronic Qualifiers: Peripheral neuropathy type: polyneuropathy, unspecified Qualified Code(s): G62.9 - Polyneuropathy, unspecified Plan to address problem: Initiated on Lyrica 50 mg twice a day (3) DVT prophylaxis Current Visit: No Status: Acute Plan to address problem: On anticoagulation and GI prophylaxis (4) Advance care planning Current Visit: Yes Status: Acute Plan to address problem: Disease education collected, care plan discussed, diagnosis discussed, prognosis discussed. Patient is full code. Patient acknowledges understanding and agreement with care plan. +30 minutes. Subjective Date of service: 06/13/21 Principal diagnosis: Foot pain, asymptomatic bradycardia Interval history: History Interval history: 66 YO Male HD #4 with Asymptomatic Bradycardia , Malnutrition, Homelessness. Pa tient resting comfortably in bed patient denies pain. Patient denies loss of consciousness or chest pain. No reported nursing events. Pt is medically optimized. Case management consulted. awaiting clearance from case management. 06/07/21 Waiting for placement 06/08/21 through 06/13/21 Waiting for placement Objective - Constitutional Vitals: Vital Signs - 12hr 06/12/21 06/12/21 06/12/21 16:56 19:00 22:00 Temperature 98.4 F Pulse Rate 52 L 53 L Respiratory 18 Rate Blood Pressure 164/77 O2 Sat by Pulse 100 100 Oximetry 06/12/21 06/12/21 22:01 23:01 Temperature 98.5 F Pulse Rate 57 L 57 L Respiratory 18 Rate Blood Pressure 168/85 168/85 O2 Sat by Pulse 100 Oximetry General appearance: Present: no acute distress, well-nourished - EENT Eyes: PERRL, EOM intact ENT: hearing intact, clear oral mucosa Ears: bilateral: normal - Neck Neck: supple, normal ROM - Respiratory Respiratory effort: normal Respiratory: bilateral: CTA - Breasts Breasts: normal - Cardiovascular Heart rate: 57 Rhythm: regular Heart Sounds: Present: S1 & S2. Absent: gallop, rub Extremities: pulses intact, No edema, normal color, Full ROM - Gastrointestinal General gastrointestinal: Present: soft, non-tender, non-distended, normal bowel sounds - Genitourinary Male genitourinary: normal - Integumentary Integumentary: clear, warm, dry - Musculoskeletal Musculoskeletal: 1, strength equal bilaterally - Neurologic Neurologic: moves all extremities - Psychiatric Psychiatric: memory intact, appropriate mood/affect, intact judgment & insight - Labs CBC & Chem 7: 06/02/21 11:08 06/03/21 04:48 HEART Score - HEART Score Age: 45-65 Risk factors: 1-2 risk factors Troponin: Troponin T 0.012 ng/mL (0.00-0.029) 06/02/21 11:08 Troponin: < normal limit - Critical Actions Critical Actions: 0-3 pts:0.9-1.7%risk of adverse cardiac event.Candidate for d ischarge
[2021-06-13] MEDS: HEPARIN 5,000 UNIT/1 ML VIAL SUB-Q SCH ×2 (08:59→21:17)
[2021-06-13] MEDS: hydrALAZINE 20 MG/1 ML INJ IV PRN (17:46)
[2021-06-14] MEDS: HEPARIN 5,000 UNIT/1 ML VIAL SUB-Q SCH ×2 (09:58→22:34)
--- NOTE | 2021-06-14 20:07 | Progress Note ---
Assessment and Plan - Patient Problems (1) Bradycardia Current Visit: Yes Status: Acute Plan to address problem: Cardiology team consulted, supportive care. Patient medically optimized at this time and cleared for discharge as per cardiology team. Discharge order entered. (2) Homelessness Current Visit: Yes Status: Acute Plan to address problem: Case management team consulted. (3) DVT prophylaxis Current Visit: Yes Status: Acute Plan to address problem: SCD to bilateral lower extremities while in bed (4) Advance care planning Current Visit: Yes Status: Acute Plan to address problem: Disease education conducted, care plan discussed, diagnoses discussed, prognosis discussed, patient is full code. Patient acknowledges understanding and agreement care plan, +30 minutes. History Interval history: 66 YO Male HD #12 with Asymptomatic Bradycardia with heart rate range 49-65 bmp overnight which is consistent with patient during hospital stay, Malnutrition, Homelessness. Patient resting comfortably in bed patient denies pain. Patient denies loss of consciousness or chest pain. No reported nursing events. Pt is medically optimized. Case management consulted. awaiting clearance from case management. Hospitalist Physical - Constitutional Vitals: Temp Pulse Resp BP Pulse Ox 98.5 F 49 L 16 154/90 100 06/14/21 17:10 06/14/21 17:10 06/14/21 17:10 06/14/21 17:10 06/14/21 17:10 General appearance: Present: no acute distress, well-nourished - EENT Eyes: Present: PERRL ENT: hearing intact - Neck Neck: Present: supple - Respiratory Respiratory effort: normal Respiratory: bilateral: CTA - Cardiovascular Rhythm: other (bradycardia) - Extremities Extremities: no ischemia Peripheral Pulses: within normal limits - Abdominal General gastrointestinal: soft, non-tender, non-distended - Integumentary Integumentary: Present: clear, dry - Psychiatric Psychiatric: appropriate mood/affect, cooperative - Neurologic Neurologic: CNII-XII intact HEART Score - HEART Score Age: 45-65 Risk factors: 1-2 risk factors Troponin: Troponin T 0.012 ng/mL (0.00-0.029) 06/02/21 11:08 Troponin: < normal limit - Critical Actions Critical Actions: 0-3 pts:0.9-1.7%risk of adverse cardiac event.Candidate for discharge Results - Labs CBC & Chem 7: 06/02/21 11:08 06/03/21 04:48 Labs: Laboratory Last Values WBC 4.1 K/mm3 (4.5-11.0) L 06/02/21 11:08 RBC 4.87 M/mm3 (3.65-5.03) 06/02/21 11:08 Hgb 13.1 gm/dl (11.8-15.2) 06/02/21 11:08 Hct 41.1 % (35.5-45.6) 06/02/21 11:08 MCV 85 fl (84-94) 06/02/21 11:08 MCH 27 pg (28-32) L 06/02/21 11:08 MCHC 32 % (32-34) 06/02/21 11:08 RDW 15.2 % (13.2-15.2) 06/02/21 11:08 Plt Count 217 K/mm3 (140-440) 06/02/21 11:08 Lymph % (Auto) 28.9 % (13.4-35.0) 06/02/21 11:08 [place] % (Auto) 8.4 % (0.0-7.3) H 06/02/21 11:08 Eos % (Auto) 0.8 % (0.0-4.3) 06/02/21 11:08 Baso % (Auto) 1.0 % (0.0-1.8) 06/02/21 11:08 Lymph # (Auto) 1.2 K/mm3 (1.2-5.4) 06/02/21 11:08 [place] # (Auto) 0.3 K/mm3 (0.0-0.8) 06/02/21 11:08 Eos # (Auto) 0.0 K/mm3 (0.0-0.4) 06/02/21 11:08 Baso # (Auto) 0.0 K/mm3 (0.0-0.1) 06/02/21 11:08 Add Manual Diff Complete 06/02/21 11:08 Seg Neutrophils % 60.9 % (40.0-70.0) 06/02/21 11:08 Seg Neutrophils # 2.5 K/mm3 (1.8-7.7) 06/02/21 11:08 ESR 6 mm/Hr (0-20) 06/02/21 11:08 PT 14.5 Sec. (12.2-14.9) 06/02/21 11:08 INR 1.02 (0.87-1.13) 06/02/21 11:08 APTT 29.2 Sec. (24.2-36.6) 06/02/21 11:08 Sodium 139 mmol/L (137-145) 06/03/21 04:48 Potassium 4.3 mmol/L (3.6-5.0) 06/03/21 04:48 Chloride 101.0 mmol/L (98-107) 06/03/21 04:48 Carbon Dioxide 25 mmol/L (22-30) 06/03/21 04:48 Anion Gap 17 mmol/L 06/03/21 04:48 BUN 22 mg/dL (9-20) H 06/03/21 04:48 Creatinine 1.2 mg/dL (0.8-1.3) 06/03/21 04:48 Estimated GFR > 60 ml/min 06/03/21 04:48 BUN/Creatinine Ratio 18 % 06/03/21 04:48 Glucose 109 mg/dL (75-100) H 06/03/21 04:48 Calcium 9.1 mg/dL (8.4-10.2) 06/03/21 04:48 Magnesium 2.00 mg/dL (1.7-2.3) 06/02/21 11:08 Total Bilirubin 0.20 mg/dL (0.1-1.2) 06/03/21 04:48 AST 13 units/L (5-40) 06/03/21 04:48 ALT 9 units/L (7-56) 06/03/21 04:48 Alkaline Phosphatase 58 units/L (35-129) 06/03/21 04:48 Total Creatine Kinase 84 units/L (55-170) 06/02/21 11:08 CK-MB (CK-2) 2.4 ng/mL (0.0-4.0) 06/02/21 11:08 CK-MB (CK-2) Rel Index 2.8 (0-4) 06/02/21 11:08 Troponin T 0.012 ng/mL (0.00-0.029) 06/02/21 11:08 C-Reactive Protein < 0.30 mg/dL (0.00-1.30) 06/02/21 11:08 Total Protein 6.1 g/dL (6.3-8.2) L 06/03/21 04:48 Albumin 3.9 g/dL (3.9-5) 06/03/21 04:48 Albumin/Globulin Ratio 1.8 % 06/03/21 04:48 TSH 0.804 mlU/mL (0.270-4.200) 06/02/21 11:08 Free T4 1.06 ng/dL (0.76-1.46) 06/02/21 11:08 Digoxin 0.3 ng/mL (0.9-2.0) L 06/02/21 11:08 [place]/IV: Voiding Method Urinal Active Medications - Current Medications Current Medications: Generic Name Dose Route Start Last Admin Trade Name Freq PRN Reason Stop Dose Admin Acetaminophen 650 mg 06/02/21 19:29 Acetaminophen 325 Mg Tab PO Q4H PRN Pain MILD(1-3)/Fever >100.5/IYER Heparin Sodium (Porcine) 5,000 unit 06/02/21 22:00 06/14/21 09:58 Heparin 5,000 Unit/1 Ml Vial SUB-Q 5,000 unit Q12HR JHONATHAN Administration Hydralazine HCl 10 mg 06/04/21 05:43 06/13/21 17:46 Hydralazine 20 Mg/1 Ml Inj IV 10 mg Q4HR PRN Administration Hypertension Morphine Sulfate 2 mg 06/02/21 19:29 Morphine 2 Mg/1 Ml Inj IV Q4H PRN Pain, Moderate (4-6) Ondansetron HCl 4 mg 06/02/21 19:29 Ondansetron 4 Mg/2 Ml Inj IV Q8H PRN Nausea And Vomiting Oxycodone/Acetaminophen 1 tab 06/02/21 19:29 06/06/21 08:11 Oxycodone /Acetaminophen 5-325mg Tab PO 1 tab Q6H PRN Administration Pain, Moderate (4-6) Sodium Chloride 10 ml 06/02/21 22:00 06/14/21 10:03 Sodium Chloride 0.9% 10 Ml Flush Syringe IV 10 ml BID JHONATHAN Administration Sodium Chloride 10 ml 06/02/21 19:29 Sodium Chloride 0.9% 10 Ml Flush Syringe IV PRN PRN LINE FLUSH Nutrition/Malnutrition Assess - Dietary Evaluation Nutrition/Malnutrition Findings: Nutrition Notes Start: 06/03/21 15:35 Freq: Status: Active Protocol: Document 06/10/21 17:18 CATRACHO (Rec: 06/10/21 17:30 CATRACHO [id number]) Nutrition Notes Initial or Follow up Reassessment Current Diagnosis Hypertension Other Pertinent Diagnosis Bradycardia, Peripheral Neuropathy. Current Diet Regular Diet (since D 06/02). Labs/Tests 06/10: N/A. Pertinent Medications 06/10: Nutritionally unremarkable. Height 5 ft 7 in Weight 63 kg [place] Body Weight (kg) 67.27 BMI 21.7 Weight change and time frame 2.5 Kg body weight gain in 1 week reported. Weight Status Appropriate Subjective/Other Information RD consult for routine F/U on Dietary Advancement. Pt's PO intake of meals has been Good (100%), according to ADL notes. Pt is on Room Air, O2 saturation @ 99%, according to Physical Assessment History notes. Pt is homeless, SW is attempting to find some place safe for discharge. Percent of energy/protein needs met: Prescribed Regular Diet provides for energy/protein needs (2,289 Kcal/89 g) during LOS. Burn Absent Trauma Absent GI Symptoms None Food Allergy No Skin Integrity/Comment Unspecified Dryness & Flaking. Current % PO Good (75-100%) Minimum of two criteria No Is patient on ventilator? No Is Patient Ambulatory and/or Out of Bed Yes REE-([facility]-ambulatory/OOB) [ 1785.719 [id number]] Calculation Used for Recommendations [facility] Additional Notes Protein: 1-1.2 g/Kg ABW; 61-73 g/day. Fluids: 1 ml/Kcal, or as per MD. Nutrition Intervention Change Diet Order: Continue Regular Diet. Revisit per MD consult or patient Sign Off request: Additional Comments Continue monitoring food tolerance, %PO intake of meals , and BM.
--- NOTE | 2021-06-15 09:10 | Discharge Summary ---
Providers - Providers Date of Admission: 06/02/21 19:29 Attending physician: RANJIT MCLEOD MD 06/02/21 19:29 Consult to Physician [CONS] Routine Comment: Consulting Provider: HODA ORELLANA Physician Instructions: Reason For Exam: Bradycardia 06/03/21 04:54 Consult to Wound/ET Nurse [CONS] Routine Reason For Exam: Foot wound evaluation. 06/08/21 12:14 Physical Therapy Evaluation and Treat [CONS] Routine Comment: Reason For Exam: Eval mobility Primary care physician: DELIVERY REPRESENTATIVE Hospitalization Reason for admission: Bradycardia Condition: Fair Hospital course: 66 YO Male HD #13 with Asymptomatic Bradycardia with heart rate range 49-65 bmp overnight which is consistent with patient during hospital stay, Malnutrition, H omelessness. Patient resting comfortably in bed patient denies pain. Patient denies loss of consciousness or chest pain. No reported nursing events. Pt is medically optimized. Case management consulted. awaiting clearance from case management. Patient seen and examined today tolerating diet no acute distress. He denies any pain denies any symptoms with the noted bradycardia. He is cleared from my standpoint for this (1) Bradycardia Current Visit: Yes Status: Acute Plan to address problem: Cardiology team consulted, supportive care. Patient medically optimized at this time and cleared for discharge as per cardiology team. Discharge order entered. (2) peripheral neuropathy (3) homelessness (4) hypertension Disposition: 01 HOME / SELF CARE / HOMELESS Final Discharge Diagnosis (Prints w/discharge instructions): Bradycardia with peripheral neuropathy hypertension Time spent for discharge: 35-minute Core Measure Documentation - Palliative Care Palliative Care/ Comfort Measures: Not Applicable - Core Measures Any of the following diagnoses?: none Exam - Physical Exam Narrative exam: VITAL SIGNS: Reviewed. GENERAL: The patient appears normally developed, Vital signs as documented. HEAD: No signs of head trauma. EYES: Pupils are equal. Extraocular motions intact. EARS: Hearing grossly intact. MOUTH: Oropharynx is normal. NECK: No adenopathy, no JVD. CHEST: Chest with clear breath sounds bilaterally. No wheezes, rales, or rhonchi. CARDIAC: Bradycardia with regular rhythm S1 and S2, without murmurs, gallops, or rubs. VASCULAR: No Edema. Peripheral pulses normal and equal in all extremities. ABDOMEN: Soft, non tender and non distended. No rebound or guarding, and no masses palpated. Bowel Sounds normal. MUSCULOSKELETAL: Good range of motion of all major joints. Extremities without clubbing, cyanosis or edema. NEUROLOGIC EXAM: Alert and oriented x 3 No focal sensory or strength deficits. Speech normal. Follows commands. PSYCHIATRIC: Mood normal. SKIN: detail exam as documented in skin assessment - Constitutional Vitals: Temp Pulse Resp BP Pulse Ox 98.7 F 52 L 18 132/80 99 06/15/21 05:13 06/15/21 05:13 06/15/21 05:13 06/15/21 05:13 06/15/21 05:13 Plan Activity: advance as tolerated, fall precautions Diet: low fat Special Instructions: record daily weights, record daily BP diary Follow up with: PRIMARY CAREMD [Primary Care Provider] - 3-5 Days UMAIR QUIROS MD [Staff Physician] - 7 Days
[2021-06-15] MEDS: HEPARIN 5,000 UNIT/1 ML VIAL SUB-Q SCH ×2 (09:29→23:16)
[2021-06-16 05:20] VITALS: BP 151/86
[2021-06-16] MEDS: HEPARIN 5,000 UNIT/1 ML VIAL SUB-Q SCH (10:12)
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
== END 2021-06-16 12:45 | disposition home or self-care (01) | DRG 310 ==
LOC: ED 08:32 → 4A 19:29 → 3A 06-14 16:16
PROVIDERS: ADMIT Internal Medicine Cardiovascular Disease; ATTEND Internal Medicine
DX: R00.1 Bradycardia, unspecified (principal); G62.9 Polyneuropathy, unspecified; Z86.73 Personal history of transient ischemic attack (TIA), and cerebral infarction without residual deficits; Z87.891 Personal history of nicotine dependence; Z79.82 Long term (current) use of aspirin; Z83.3 Family history of diabetes mellitus; Z59.00 Homelessness unspecified
CPT/HCPCS: 36415; 71045; 80048; 80053; 80162; 82550; 82553; 83735; 84439; 84443; 84484; 85025; 85610; 85652; 85730; 86140; 93005; 93306; 93925; 96374; 96375; 99285; G0378; C8929; J0360; J0461; J1644; J2405; J3010; J3370; J7030